=== PATIENT | female | born 1965 | race Caucasian/White ===

== ENCOUNTER 2021-12-16 09:06 | Outpatient (REF) | payer OTHER, SELFPAY ==
--- NOTE | ~2021-12-16 | XR_ITS ---
EXAMINATION: XR LUMBOSACRAL SPINE CLINICAL INFORMATION: Low back pain COMPARISON: None TECHNIQUE: Three views of the lumbosacral spine. FINDINGS: There is grade 1 anterolisthesis of L4 on L5. Mild multilevel degenerative endplate changes throughout the lumbar spine most prominent at L4-L5 and L5-S1. Moderate facet arthrosis at L4-L5 and L5-S1. No compression fracture. Gallstones. XR/XR lumbar spine 2-3V IMPRESSION: Mild to moderate degenerative changes in lumbar spine with grade 1 anterolisthesis of L4 on L5. Gallstones.
[2021-12-16 11:15] LABS: MANUAL DIFF FLAG NO
[2021-12-16 11:24] LABS: Appearance Urine Clear; Color Urine Yellow; Glucose Urine UA Negative (Negative); Leukocyte Esterase Urine Moderate (2+) (Negative); Nitrite Urine Negative (Negative); UMIC TRIGGER UA YES; Urine Blood Negative (Negative); Urine Ketones Negative (Negative); Urine Protein Negative (Neg-Trace)
[2021-12-16 11:27] LABS: Basophils Absolute Auto 0.1 X10*3/uL (0.0-0.2); Eosinophils Absolute Auto 0.1 X10*3/uL (0.0-0.4); Eosinophils Percent Auto 1.2 % (0-4); Hematocrit 40.3 % (37.0-47.0); Hemoglobin 14.1 g/dl (12.0-16.0); Imm Gran Abs Auto 0.01 X10*3/uL (0.00-0.03); Imm Gran Pct Auto 0.2 % (0.0-0.4); Lymphocytes Absolute Auto 2.2 X10*3/uL (1.2-4.9); Mean Corpuscular Hemoglobin 29.3 pg (27.0-33.0); Mean Corpuscular Volume 83.6 fL (80.0-98.0); Mean Platelet Volume 10.8 fL (9.4-12.3); Monocytes Absolute Auto 0.4 X10*3/uL (0.1-1.2); Monocytes Percent Auto 7.1 % (2-11); Neutrophils Percent Auto 52.5 % (45-73); Platelet Count 217 X10*3/uL (160-400); Red Blood Count 4.82 X10*6/uL (4.20-5.50); Red Cell Distribution Width 12.4 % (11.0-16.0); White Blood Count 5.8 X10*3/uL (4.8-10.8)
[2021-12-16 11:43] LABS: Bacteria Urine None Seen (None Seen); Hyaline Casts Urine 0-2 /LPF (0-2); RBC Urine 0-2 /HPF (0-2); Squamous Epithelial Cell Urine 0-2 /HPF (0-2); WBC Urine 0-5 /HPF (0-5)
[2021-12-16 11:50] LABS: Alanine Aminotransferase 25 U/L (0-31); Albumin Level 4.7 g/dL (3.5-5.0); Alkaline Phosphatase 73 U/L (39-117); Anion Gap 17 (12-20); Aspartate Amino Transferase 19 U/L (5-31); Bilirubin Total 0.6 mg/dL (0.0-1.0); Blood Urea Nitrogen 14 mg/dL (9-16); Calcium 9.9 mg/dL (8.4-10.2); Carbon Dioxide 27 mmol/L (22-29); Chloride 100 mmol/L (96-108); Cholesterol 222 mg/dL; Estimated Glomerular Filt Rate > 60; Glucose Fasting 121 mg/dL (60-99); HDL Cholesterol 56 mg/dL; LDL Cholesterol Calculated 135 mg/dl; Sodium 140 mmol/L (135-145); Total Protein 7.2 g/dL (6.5-8.0); Triglycerides 159 mg/dL
[2021-12-16 12:15] LABS: TSH reflex Free T4 0.78 uIU/mL (0.32-4.0); Vitamin D 25-OH Total 53.9 ng/mL (>30)
== END 2021-12-16 09:07 | disposition home or self-care (01) ==
LOC: HO.HMGCLDS 09:06
PROVIDERS: PCP Internal Medicine; Visit Provider Internal Medicine
DX: Z00.00 Encounter for general adult medical examination without abnormal findings (principal); M54.50 Low back pain, unspecified; I10 Essential (primary) hypertension; E55.9 Vitamin D deficiency, unspecified; G89.29 Other chronic pain
CPT/HCPCS: 36415; 72100; 80053; 80061; 81001; 82306; 84443; 85025

== ENCOUNTER 2022-01-12 08:21 | Outpatient (REF) | payer OTHER, SELFPAY ==
--- NOTE | ~2022-01-12 | US_ITS ---
EXAMINATION: US THYROID CLINICAL INFORMATION: Nontoxic goiter, unspecified. COMPARISON: None TECHNIQUE: Linear transducer grayscale and color Doppler examination with attention to the region of the thyroid. FINDINGS: SIZE: Measurements of the thyroid lobes and nodules are given in sagittal, anteroposterior and transverse dimensions respectively. Right Thyroid Lobe: 4.8 x 1.1 x 1.7 cm, volume 4.5 mL. Parenchyma: The gland echotexture is homogeneous. Thyroid vascularity is normal. Left Thyroid Lobe: 4.9 x 1.6 x 1.8 cm, volume 11.3 mL. Parenchyma: The gland echotexture is homogeneous. Thyroid vascularity is normal. Isthmus: 0.5 cm in maximum AP dimension. Estimated total number of nodules greater than or equal to 1 cm: 1. Entry Level Project Coordinator nodules are described as follows: 1. Location: Right mid. Size: 0.41 x 0.7 x 0.39 cm, volume 0.02 mL. Nodule characteristics: Composition: Cystic(0). ACR TI-RADS total points: 0 ACR TI-RADS category: 1 2. Location: Right superior. Size: 0.96 x 0.56 x 0.95 cm, volume 0.27 mL. Nodule characteristics: Composition: Spongiform (0). Echogenicity: Anechoic (0). Shape: Not taller than wide (0). Margins: Smooth (0). Echogenic Foci: None (0). ACR TI-RADS total points: 0 ACR TI-RADS category: 1 3. Location: Left mid. Size: 0.56 x 0.42 x 0.54 cm, volume 0.07 mL. Nodule characteristics: Composition: Spongiform (0). Echogenicity: Anechoic (0). Shape: Not taller than wide (0). Margins: Smooth (0). Echogenic Foci: None (0). ACR TI-RADS total points: 0 ACR TI-RADS category: 1 4. Location: Left inferior. Size: 1.4 x 0.93 x 1.5 cm, volume 1.0 mL. Nodule characteristics: Composition: Solid/almost completely solid (2). Echogenicity: Hypoechoic (2). Shape: Not taller than wide (0). Margins: Smooth (0). Echogenic Foci: Punctate echogenic foci (3). ACR TI-RADS total points: 7 ACR TI-RADS category: 5 NODES: No lymphadenopathy is seen in the tissue surrounding the thyroid gland. US/US thyroid IMPRESSION: Bilateral nodules. According to TI RADS criteria, fine-needle aspiration of the largest nodule in the inferior left lobe recommended. ACR TI-RADS RECOMMENDATION REFERENCE: Ultrasound-guided fine-needle aspiration, followup ultrasound, no further follow up. * TR1 (0 point) and TR 2 (2 points): No FNA or follow up. * TR3 (3 points): FNA if more than or equal to 2.5 cm in maximum dimension, followup ultrasound in 1, 3 and 5 years if 1.5 to 2.4 cm in maximum dimension. * TR4 (4-6 points): FNA if more than or equal to 1.5 cm in maximum dimension, followup ultrasound in 1, 2, 3 and 5 years if 1 to 1.4 cm in maximum dimension. * TR5 (more than or equal to 7 points): FNA if more than or equal to 1 cm in maximum dimension, followup ultrasound every year for 5 years if 0.5 to 0.9 cm in maximum dimension. * TR3, TR4 or TR5 nodules that are below the size threshold for followup receive no follow up.
== END 2022-01-12 08:22 | disposition home or self-care (01) ==
LOC: HO.HMGCX 08:21
PROVIDERS: PCP Internal Medicine; Visit Provider Internal Medicine
DX: E04.9 Nontoxic goiter, unspecified (principal)
CPT/HCPCS: 76536

== ENCOUNTER 2022-04-21 07:45 | Outpatient (REF) | payer OTHER, SELFPAY ==
--- NOTE | 2022-04-21 08:45 | P.BOP_ITS ---
Brief Operative Note Date of Service: 04/21/22 Pre-op diagnosis: Multinodular Thyroid Procedure: EXAMINATION: US THYROID CLINICAL INFORMATION: Multinodular Thyroid COMPARISON: Prior TECHNIQUE: Linear transducer lujan-scale and color Doppler examination with attention to the region of the thyroid. FINDINGS: SIZE: Measurements of the thyroid lobes and nodules are given in sagittal, anteroposterior and transverse dimensions respectively. Right Thyroid Lobe: 1.5 x 3.8 x 1.2 cm, volume mL. Parenchyma: The gland echotexture is homogenous. Thyroid vascularity is normal. Left Thyroid Lobe: 1.5 x 3.9 x 1.1 cm, volume mL. Parenchyma: The gland echotexture is homogenous. Thyroid vascularity is normal. Isthmus: 0.3 cm in maximum AP dimension. RIGHT THYROID LOBE: There is 1 nodule. There is a 0.8 x 1.0 x 0.8 cm spongiform nodule in the RMP. LEFT THYROID LOBE: There is 1 nodule. There is a 1.3 x 0.8 x 1.3 cm spongiform nodule in the LMP. There are mutliple scattered subcentimeter cystic appearing nodules bilaterally. NODES: No lymphadenopathy is seen in the tissue surrounding the thyroid gland. Surgeon: Fariba Velásquez, DO Was an Recorder Helper [employer] used for this Procedure?: No Estimated blood loss (mL): 0
== END 2022-04-21 07:46 | disposition home or self-care (01) ==
LOC: HO.US 07:45
PROVIDERS: PCP Internal Medicine; Visit Provider Internal Medicine
DX: E04.2 Nontoxic multinodular goiter (principal)
CPT/HCPCS: 76536

== ENCOUNTER 2022-05-06 08:25 | Outpatient (REF) | payer OTHER, SELFPAY ==
[2022-05-06 11:36] LABS: Appearance Urine Cloudy; Color Urine Yellow; Glucose Urine UA Negative (Negative); Leukocyte Esterase Urine Moderate (2+) (Negative); Nitrite Urine Negative (Negative); Specific Gravity - Urine 1.025 (1.005-1.025); UMIC TRIGGER UA YES; Urine Blood Negative (Negative); Urine Ketones Negative (Negative); Urine Protein Negative (Neg-Trace)
[2022-05-06 11:39] LABS: Bacteria Urine 4+ (None Seen); Hyaline Casts Urine 0-2 /LPF (0-2); WBC Urine 21-50 /HPF (0-5)
[2022-05-06 12:14] LABS: Anion Gap 15 (12-20); Blood Urea Nitrogen 13 mg/dL (9-16); Calcium 9.4 mg/dL (8.4-10.2); Carbon Dioxide 27 mmol/L (22-29); Chloride 104 mmol/L (96-108); Cholesterol 220 mg/dL; Estimated Glomerular Filt Rate > 60; Glucose Fasting 130 mg/dL (60-99); HDL Cholesterol 58 mg/dL; LDL Cholesterol Calculated 135 mg/dl; Sodium 142 mmol/L (135-145); Triglycerides 137 mg/dL
[2022-05-06 14:13] LABS: Estimated Average Glucose 120 mg/dL; Hemoglobin A1C 149.5293 umol/L; Hemoglobin A1c % 5.8 %
== END 2022-05-06 08:26 | disposition home or self-care (01) ==
LOC: HO.HMGCLDS 08:25
PROVIDERS: PCP Internal Medicine; Visit Provider Internal Medicine
DX: Z00.00 Encounter for general adult medical examination without abnormal findings (principal); I10 Essential (primary) hypertension; E78.5 Hyperlipidemia, unspecified; R73.9 Hyperglycemia, unspecified
CPT/HCPCS: 36415; 80048; 80061; 81001; 83036

== ENCOUNTER 2022-05-13 10:55 | Outpatient (REF) | payer OTHER, SELFPAY ==
--- NOTE | ~2022-05-13 | XR_ITS ---
EXAMINATION: XR CHEST CLINICAL INFORMATION: Cough. COMPARISON: None TECHNIQUE: 2 views of the chest were obtained. FINDINGS: No significant abnormality is noted involving the heart, lungs, mediastinum, bony thorax or soft tissues. XR/XR chest 2V IMPRESSION: No acute cardiopulmonary process.
== END 2022-05-13 10:56 | disposition home or self-care (01) ==
LOC: HO.HMGCX 10:55
PROVIDERS: PCP Internal Medicine; Visit Provider Internal Medicine
DX: R05.9 Cough, unspecified (principal); R82.71 Bacteriuria
CPT/HCPCS: 71046; 87086

== ENCOUNTER 2022-06-06 12:39 | Outpatient (REF) | payer OTHER, SELFPAY ==
[2022-06-06 13:59] LABS: Appearance Urine Clear; Color Urine Yellow; Glucose Urine UA Negative (Negative); Leukocyte Esterase Urine Small (1+) (Negative); Nitrite Urine Negative (Negative); PH 5.5 (5.0-9.0); UMIC TRIGGER UACC YES; Urine Blood Negative (Negative); Urine Ketones Negative (Negative); Urine Protein Negative (Neg-Trace)
[2022-06-06 14:05] LABS: Bacteria Urine 1+ (None Seen); Hyaline Casts Urine 0-2 /LPF (0-2); RBC Urine 0-2 /HPF (0-2); UACC Culture Trigger YES
== END 2022-06-06 12:40 | disposition home or self-care (01) ==
LOC: HO.HMGCLDS 12:39
PROVIDERS: PCP Internal Medicine; Visit Provider Internal Medicine
DX: R82.71 Bacteriuria (principal)
CPT/HCPCS: 81001; 87086

== ENCOUNTER 2022-08-15 08:12 | Outpatient (REF) | payer OTHER, SELFPAY ==
[2022-08-15 11:28] LABS: Appearance Urine Clear; Color Urine Yellow; Glucose Urine UA Negative (Negative); Leukocyte Esterase Urine Small (1+) (Negative); Nitrite Urine Negative (Negative); UMIC TRIGGER UACC YES; Urine Blood Negative (Negative); Urine Ketones Negative (Negative); Urine Protein Negative (Neg-Trace)
[2022-08-15 11:57] LABS: Estimated Average Glucose 120 mg/dL; Hemoglobin A1C 151.4863 umol/L; Hemoglobin A1c % 5.8 %
[2022-08-15 12:10] LABS: Alanine Aminotransferase 24 U/L (0-31); Albumin Level 4.3 g/dL (3.5-5.0); Alkaline Phosphatase 77 U/L (39-117); Anion Gap 12 (12-20); Aspartate Amino Transferase 18 U/L (5-31); Bilirubin Total 0.7 mg/dL (0.0-1.0); Blood Urea Nitrogen 19 mg/dL (9-16); Calcium 9.7 mg/dL (8.4-10.2); Carbon Dioxide 31 mmol/L (22-29); Chloride 103 mmol/L (96-108); Cholesterol 208 mg/dL; Estimated Glomerular Filt Rate > 60; Glucose Fasting 118 mg/dL (60-99); HDL Cholesterol 57 mg/dL; LDL Cholesterol Calculated 114 mg/dl; Potassium 4.1 mmol/L (3.3-5.1); Sodium 142 mmol/L (135-145); Total Protein 6.8 g/dL (6.5-8.0); Triglycerides 187 mg/dL
[2022-08-15 12:55] LABS: Bacteria Urine None Seen (None Seen); Hyaline Casts Urine 0-2 /LPF (0-2); RBC Urine 0-2 /HPF (0-2); Squamous Epithelial Cell Urine 0-2 /HPF (0-2); UACC Culture Trigger YES; WBC Urine 0-5 /HPF (0-5)
== END 2022-08-15 08:13 | disposition home or self-care (01) ==
LOC: HO.HMGCLDS 08:12
PROVIDERS: PCP Internal Medicine; Visit Provider Internal Medicine
DX: E78.5 Hyperlipidemia, unspecified (principal); R73.9 Hyperglycemia, unspecified; I10 Essential (primary) hypertension; R82.90 Unspecified abnormal findings in urine
CPT/HCPCS: 36415; 80053; 80061; 81001; 83036; 87086

== ENCOUNTER 2022-12-20 08:22 | Outpatient (REF) | payer OTHER, SELFPAY ==
[2022-12-20 11:25] LABS: MANUAL DIFF FLAG NO
[2022-12-20 11:39] LABS: Basophils Absolute Auto 0.1 X10*3/uL (0.0-0.2); Basophils Percent Auto 0.9 % (0-2); Eosinophils Absolute Auto 0.1 X10*3/uL (0.0-0.4); Eosinophils Percent Auto 1.5 % (0-4); Hematocrit 43.1 % (37.0-47.0); Hemoglobin 14.2 g/dl (12.0-16.0); Imm Gran Abs Auto 0.01 X10*3/uL (0.00-0.03); Imm Gran Pct Auto 0.2 % (0.0-0.4); Lymphocytes Percent Auto 37.9 % (20-40); Mean Corpuscular HGB Conc 32.9 g/dl (31.0-35.0); Mean Corpuscular Hemoglobin 28.8 pg (27.0-33.0); Mean Corpuscular Volume 87.4 fL (80.0-98.0); Mean Platelet Volume 11.6 fL (9.4-12.3); Monocytes Absolute Auto 0.4 X10*3/uL (0.1-1.2); Monocytes Percent Auto 6.8 % (2-11); Neutrophils Absolute Auto 2.8 x10*3/uL (2.0-8.3); Neutrophils Percent Auto 52.7 % (45-73); Platelet Count 205 X10*3/uL (160-400); Red Blood Count 4.93 X10*6/uL (4.20-5.50); Red Cell Distribution Width 12.6 % (11.0-16.0); White Blood Count 5.3 X10*3/uL (4.8-10.8)
[2022-12-20 11:56] LABS: Alanine Aminotransferase 19 U/L (0-31); Albumin Level 4.4 g/dL (3.5-5.0); Alkaline Phosphatase 78 U/L (39-117); Anion Gap 17 (12-20); Aspartate Amino Transferase 15 U/L (5-31); Bilirubin Total 0.6 mg/dL (0.0-1.0); Blood Urea Nitrogen 15 mg/dL (9-16); Calcium 9.9 mg/dL (8.4-10.2); Carbon Dioxide 25 mmol/L (22-29); Chloride 102 mmol/L (96-108); Cholesterol 216 mg/dL (<200); Estimated Glomerular Filt Rate > 60; Glucose Fasting 118 mg/dL (60-99); HDL Cholesterol 59 mg/dL (>40); LDL Cholesterol Calculated 128 mg/dL (<100); Potassium 3.8 mmol/L (3.3-5.1); Sodium 140 mmol/L (135-145); Total Protein 7.3 g/dL (6.5-8.0); Triglycerides 145 mg/dL (<150)
[2022-12-20 12:12] LABS: Estimated Average Glucose 120 mg/dL; Hemoglobin A1c % 5.8 % (<6.0)
[2022-12-20 13:10] LABS: Creatinine Urine 187.85 mg/dL; Microalbum/Creatinine Ratio Ur 4.7 ug/mg cr (<30)
== END 2022-12-20 08:23 | disposition home or self-care (01) ==
LOC: HO.HMGCLDS 08:22
PROVIDERS: PCP Internal Medicine; Visit Provider Internal Medicine
DX: I10 Essential (primary) hypertension (principal); R73.9 Hyperglycemia, unspecified; E78.5 Hyperlipidemia, unspecified
CPT/HCPCS: 36415; 80053; 80061; 82043; 82570; 83036; 85025

== ENCOUNTER 2022-12-22 07:27 | Outpatient (AMB) | payer OTHER, SELFPAY ==
[2022-12-22 07:40] VITALS: BP 122/74; PULSE 74; O2SAT 97; BMI 36.5
--- NOTE | 2022-12-22 07:40 | MHC.PC.OV ---
Vital Signs 12/22/22 07:40 Height 5 ft 7 in Weight 233 lb BMI 36.5 BP 122/74 Blood Pressure Location Lt brachial Position Sitting Pulse 74 Pulse Source Pulse Oximeter Pulse Oximetry (%) 97 Oxygen Delivery Method Room Air Intake Visit Reasons: Annual PE Intake Note: Pt is here today for PE. Allergies LISA Inhibitors Adverse Reaction (Verified 12/22/22 07:42) Anaphylaxis Seasonal Allergies Adverse Reaction (Verified 12/22/22 07:42) Itchy Eyes shell fish Adverse Reaction (Uncoded 12/22/22 07:42) Anaphylaxis Medication List - Last Reconciled 12/22/22 by Marylu Trejo MD amlodipine 5 mg PO DAILY buspirone 5 mg PO DAILY PRN cetirizine (Zyrtec) 10 mg PO DAILY PRN fluoxetine 20 mg PO DAILY hydrochlorothiazide 25 mg PO DAILY multivitamin 1 tab PO DAILY omeprazole 40 mg PO DAILY potassium citrate mg PO vitamins A,C,S-slhg-pexcsq 4,296 mcg-226 mg-90 mg (PreserVision AREDS) 1 cap PO ONCE Tobacco use date assessed: 12/22/22 Dental Screening Dental Screen Date: 12/22/22 Did you have a dental visit in the last 12 months?: Yes Did you have a dental problem in the last 6 months where you did not have access to dental care?: No Was dental information given to patient?: Patient has dentist HPI Annual PE HPI Details PATIENT PRESENTS FOR PHYSICAL PFSH Medical History Multinodular thyroid Surgical History Hx of vaginal surgery Family History Brother Substance use disorder Mother No problems noted. 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 How often do you have a drink containing alcohol?: Monthly or less 2. How many drinks containing alcohol do you have on a typical day when you are drinking?: 1 or 2 3. How often do you have six or more drinks on one occasion?: Never Total Score: 1 CHICA-7 AMB Questionnaire CHICA-7 Date CHICA - 7 assessed: 05/13/22 Source: Developed by Drs. Kavin Gracia, Ryanne Boyce, Mayco Palacios and colleagues, with an educational claudia from [employer]. Review of Systems Const All systems reviewed & are unremarkable except as noted in HPI and below Reports no additional complaints Eyes Reports no additional complaints ENT Reports no additional complaints Card Reports no additional complaints Resp Reports no additional complaints GI Reports no additional complaints Reports no additional complaints Physical exam (Primary Care) Vital Signs: Last Vital Signs Pulse 74 12/22/22 07:40 BP 122/74 12/22/22 07:40 Pulse Ox 97 12/22/22 07:40 Oxygen Delivery Method Room Air 12/22/22 07:40 BMI result Body Mass Index 36.5 Tobacco/Smoking Status: Tobacco use Status Tobacco use date assessed 12/22/22 12/22/22 07:44 Patient Tobacco Use Status Never used Tobacco 12/22/22 07:44 e-Cigarette/Vaping Use Never Used 12/22/22 07:44 Thrive Assessment: Date of Thrive Assessment Date Thrive assessed 05/13/22 12/22/22 07:44 Const General: no acute distress HENMT Ears: hearing grossly normal bilaterally Throat: Yes posterior oropharynx normal Neck Neck: Yes supple Resp Effort & Inspection: normal respiratory effort Auscultation: clear to auscultation bilaterally Cardio Rhythm: regular rhythm Heart sounds: S1 normal heart sound present and S2 normal heart sound present GI Inspection: Yes normal to inspection Palpation (GI): Soft to palpation Percussion: Yes normal to percussion Auscultation: normal bowel sounds Assessment and Plan Assessment & Plan (1) Foot tendinitis: Code(s): M77.50 - Other enthesopathy of unspecified foot and ankle Plan: Referred to policy analyst (2) Hyperglycemia: Code(s): R73.9 - Hyperglycemia, unspecified Plan: A1c is 5.8 continue ADA diet increase physical activity weight loss discussed with the patient, follow-up in 6 months with a fasting labs before (3) Hyperlipidemia: Comment: Diet controlled Code(s): E78.5 - Hyperlipidemia, unspecified Plan: Continue low-cholesterol diet (4) Hx of colonoscopy: Comment: 1 polyp 05/19, recheck 5 yrs Code(s): Z98.890 - Other specified postprocedural states (5) Annual physical exam: Code(s): Z00.00 - Encounter for general adult medical examination without abnormal findings Plan: Well-balanced diet regular physical activity weight loss discussed with the patient. Patient is up-to-date with mammogram colonoscopy and Pap smear by leaf conditioner helper (6) Multinodular thyroid: Comment: Follow-up by endocrinology Code(s): E04.2 - Nontoxic multinodular goiter Orders: Orders Comprehensive [place]. Panel Fast 6 Months E78.5 - Hyperlipidemia, unspecified, R73.9 - Hyperglycemia, unspecified Complete Blood Count no Diff 6 Months E78.5 - Hyperlipidemia, unspecified, R73.9 - Hyperglycemia, unspecified Hemoglobin A1c 6 Months E78.5 - Hyperlipidemia, unspecified, R73.9 - Hyperglycemia, unspecified Lipid Panel 6 Months E78.5 - Hyperlipidemia, unspecified, R73.9 - Hyperglycemia, unspecified Referrals Podiatry Referral M77.50 - Other enthesopathy of unspecified foot and ankle Coding Level of Care Code Est Pt Prev Care 40-64y(88876) Diagnoses Foot tendinitis M77.50 Hyperglycemia R73.9 Hyperlipidemia E78.5 Hx of colonoscopy Z98.890 Annual physical exam Z00.00 Multinodular thyroid E04.2
== END 2022-12-22 09:03 | disposition home or self-care (01) ==
PROVIDERS: PCP Internal Medicine; Visit Provider Internal Medicine
DX: M77.50 Other enthesopathy of unspecified foot and ankle (principal); R73.9 Hyperglycemia, unspecified; E78.5 Hyperlipidemia, unspecified; Z98.890 Other specified postprocedural states; Z00.00 Encounter for general adult medical examination without abnormal findings; E04.2 Nontoxic multinodular goiter
CPT/HCPCS: 99396

== ENCOUNTER 2022-12-29 07:55 | Outpatient (RCR) | payer OTHER, SELFPAY ==
--- NOTE | 2022-12-29 08:55 | MHC.PT.EP ---
[facility] [place] Office [place] Office [place] Office [address] [phone] F: [phone] F: [phone] F: [phone] F: [phone] Physical Therapy Plan of Care Date of Evaluation: 12/29/22 Date of Surgery: none Diagnosis: low back pain Assessment: Patient is a 57 year old R handed female who presents with s/s consistent with low back pain. 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 Patient past medical history is unremarkable. Current impairments include pain, posture, ROM, strength, activity tolerance and functional mobility. Functional limitations include decreased ability to walk, bend, lift, sleep, dressing, and transfers. Patient is motivated with good rehab potential. Skilled PT will address impairments and functional limitations in order to achieve goals. Frequency and Duration: The patient will be seen 1x/week for 5 weeks Short Term Goals: I with HEP -2 weeks Pain free with all ADLs and work - 3 weeks Operational Risk Analyst Goals: Hip strenght 4+/5 grossly - 5 weeks 90/90 lacking 18 or better - 5 weeks demo proper transfer and lifting body mechanics - 5 weeks Treatment Plan: Modalities to reduce pain, spasms and effusion. Manual therapy to restore motion and function. Therapeutic exercise to improve strength and flexibility. Neuromuscular re-education for posture and balance. Therapeutic activities to return to functional activities of daily living. Electronically signed by: Julio Vo, PT Please sign and return to therapist. Thank you for your referral.
--- NOTE | 2023-04-11 13:29 | MHC.PT.DC ---
[facility] [place] Office [place] Office [place] Office [address]von Mai [address] [phone] F: [phone] F: [phone] F: [phone] F: [phone] Physical Therapy Discharge Report Diagnosis: low back pain Date of Surgery: none Date of Evaluation: 12/29/22 Date of Discharge: 01/11/23 Treatments to Date: 1 Cancellations to Date: No Shows to Date: Discharge Status: Patient Elected to Stop Discharge Summary: Pt did not return after evaluation. Patient is a 57 year old R handed female who presents with s/s consistent with low back pain. 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 Patient past medical history is unremarkable. Current impairments include pain, posture, ROM, strength, activity tolerance and functional mobility. Functional limitations include decreased ability to walk, bend, lift, sleep, dressing, and transfers. Patient is motivated with good rehab potential. Skilled PT will address impairments and functional limitations in order to achieve goals. Electronically signed by: Julio Vo, PT Please sign and return to therapist. Thank you for your referral.
== END 2023-04-11 13:29 | disposition home or self-care (01) ==
LOC: HO.PTCHIC 07:55
PROVIDERS: PCP Internal Medicine; Visit Provider Internal Medicine
DX: M54.50 Low back pain, unspecified (principal)
CPT/HCPCS: 97110; 97161

== ENCOUNTER 2023-03-23 08:29 | Outpatient (REF) | payer OTHER, SELFPAY ==
--- NOTE | ~2023-03-23 | US_ITS ---
EXAMINATION: US THYROID CLINICAL INFORMATION: Nontoxic multinodular goiter. COMPARISON: Ultrasound soft tissue head/neck thyroid dated 01/12/2022. TECHNIQUE: Linear transducer grayscale and color Doppler examination with attention to the region of the thyroid. FINDINGS: SIZE: Measurements of the thyroid lobes and nodules are given in sagittal, anteroposterior and transverse dimensions respectively. Right Thyroid Lobe: 5.0 x 1.3 x 1.7 cm, volume 5.6 mL. Previously 4.8 x 1.1 x 1.7 cm, volume 4.5 mL. Parenchyma: The gland echotexture is homogeneous. Thyroid vascularity is normal. Left Thyroid Lobe: 4.8 x 1.3 x 1.5 cm, volume 5.1 mL. Previously 4.9 x 1.6 x 1.8 cm, volume 7.3 mL. Parenchyma: The gland echotexture is homogeneous. Thyroid vascularity is normal. Isthmus: 0.49 cm in maximum AP dimension. Previously 0.50 cm. Estimated total number of nodules greater than or equal to 1 cm: 2. Skating Carhop nodules are described as follows: 1. Location: Right superior. Size: 1.1 x 0.61 x 1.0 cm, volume 0.33 mL. Previously: 0.96 x 0.56 x 0.95 cm, volume 0.27 mL. Nodule characteristics: Composition: Spongiform (0). Echogenicity: Anechoic (0). Shape: Not taller than wide (0). Margins: Smooth (0). Echogenic Foci: None (0). ACR TI-RADS total points: 0 Previous: 0 ACR TI-RADS category: 1 Previous: 1 Significant change in size (>/= 20% in 2 dimensions and minimal increase of 2 mm or 50% or greater increase in volume): No Change in features: No Change in ACR TI-RADS risk category: No 2. Location: Right [id number]-drzjc. Size: 0.65 x 0.34 x 0.70 cm, volume 0.08 mL. Previously: 0.41 x 0.27 x 0.39 cm, volume 0.02 mL. Nodule characteristics: Composition: Spongiform (0). Echogenicity: Anechoic (0). Shape: Not taller than wide (0). Margins: Smooth (0). Echogenic Foci: None (0). ACR TI-RADS total points: 0 Previous: 0 ACR TI-RADS category: 1 Previous: 1 Significant change in size (>/= 20% in 2 dimensions and minimal increase of 2 mm or 50% or greater increase in volume): No Change in features: No Change in ACR TI-RADS risk category: No 3. Location: Left superior. Size: 0.65 x 0.33 x 0.59 cm, volume 0.07 mL. Previously: 0.56 x 0.42 x 0.54 cm, volume 0.07 mL. Nodule characteristics: Composition: Spongiform (0). Echogenicity: Anechoic (0). Shape: Not taller than wide (0). Margins: Smooth (0). Echogenic Foci: None (0). ACR TI-RADS total points: 0 Previous: 0 ACR TI-RADS category: 1 Previous: 1 Significant change in size (>/= 20% in 2 dimensions and minimal increase of 2 mm or 50% or greater increase in volume): No Change in features: No Change in ACR TI-RADS risk category: No 4. Location: Left mid/inferior. Size: 1.5 x 0.87 x 1.3 cm, volume 0.90 mL. Previously: 1.4 x 0.93 x 1.5 cm, volume 1.0 mL. Nodule characteristics: Composition: Solid almost completely solid. Echogenicity: Hypoechoic (2). Shape: Not taller than wide (0). Margins: Smooth (0). Echogenic Foci: Punctate echogenic foci (3). ACR TI-RADS total points: 7 Previous: 7 ACR TI-RADS category: 5 Previous: 5 Significant change in size (>/= 20% in 2 dimensions and minimal increase of 2 mm or 50% or greater increase in volume): No Change in features: No Change in ACR TI-RADS risk category: No NODES: No lymphadenopathy is seen in the tissue surrounding the thyroid gland. US/US thyroid IMPRESSION: Left 1.5 cm TR 5 thyroid nodule. Fine-needle aspiration recommended if more than or equal to 1 cm in maximum dimension. ACR TI-RADS RECOMMENDATION REFERENCE: Ultrasound-guided fine-needle aspiration, follow up ultrasound, no further followup. * TR1 (0 point) and TR2 (2 points): No FNA or followup * TR3 (3 points): FNA if more than or equal to 2.5 cm in maximum dimension, follow up ultrasound in 1, 3 and 5 years if 1.5 to 2.4 cm in maximum dimension. * TR4 (4-6 points): FNA if more than or equal to 1.5 cm in maximum dimension, follow up ultrasound in 1, 2, 3 and 5 years if 1 to 1.4 cm in maximum dimension. * TR5 (more than or equal to 7 points): FNA if more than or equal to 1 cm in maximum dimension, follow up ultrasound every year for 5 years if 0.5 to 0.9 cm in maximum dimension. * TR3, TR4 or TR5 nodules that are below the size threshold for follow up receive no followup.
== END 2023-03-23 08:30 | disposition home or self-care (01) ==
LOC: HO.HMGCX 08:29
PROVIDERS: PCP Internal Medicine; Visit Provider Internal Medicine Endocrinology, Diabetes & Metabolism
DX: E04.2 Nontoxic multinodular goiter (principal)
CPT/HCPCS: 76536

== ENCOUNTER 2023-04-27 08:13 | Outpatient (REF) | payer OTHER, SELFPAY ==
[2023-04-27 12:10] LABS: Free T4 (Free Thyroxine) 0.83 ng/dL (0.71-1.85); Thyroid Stimulating Hormone 1.31 uIU/mL (0.32-4.0)
== END 2023-04-27 08:14 | disposition home or self-care (01) ==
LOC: HO.HMGCLDS 08:13
PROVIDERS: PCP Internal Medicine; Visit Provider Internal Medicine Endocrinology, Diabetes & Metabolism
DX: E04.1 Nontoxic single thyroid nodule (principal)
CPT/HCPCS: 36415; 84439; 84443

== ENCOUNTER 2023-05-03 13:43 | Outpatient (AMB) | payer OTHER, SELFPAY ==
--- NOTE | 2023-05-03 13:46 | MHC.OFFVIS ---
Intake Vital Signs 05/03/23 13:47 Height 5 ft 7 in Weight 236 lb 12.423 oz BMI 37.1 BP 110/82 Blood Pressure Location Lt brachial Position Sitting Pulse 92 Pulse Source Pulse Oximeter Intake Visit Reasons: NTMNG-lvm Intake Note: Patient present today for NTMNG follow up visit. Last seen by Dr. Jackson on 02/02/2022. Search Engine Optimizer Required: No Accompanied by: Self / Same As Patient Allergies LISA Inhibitors Adverse Reaction (Verified 05/03/23 13:55) Anaphylaxis Seasonal Allergies Adverse Reaction (Verified 05/03/23 13:55) Itchy Eyes shell fish Adverse Reaction (Uncoded 12/22/22 07:42) Anaphylaxis Medication List - Last Reconciled 05/03/23 by Kavin Matthew MD amlodipine 5 mg PO DAILY buspirone 5 mg PO DAILY PRN cetirizine (Zyrtec) 10 mg PO DAILY PRN fluoxetine 20 mg PO DAILY hydrochlorothiazide 25 mg PO DAILY multivitamin 1 tab PO DAILY omeprazole 40 mg PO DAILY potassium citrate mg PO vitamins A,C,X-wkvy-yosexd 4,296 mcg-226 mg-90 mg (PreserVision AREDS) 1 cap PO ONCE HPI HPI Comments History of Present Illness Details 57 YO F with PMHx Multinodular Thyroid who is seen in consultation for multinodular thyroid at the request of PCP. The patient last saw Dr. Jackson on 02/02/2022 Was initially diagnosed with multinodular thyroid in 2021 with thyroid US revealing multiple bilateral thyroid nodules. Currently denies any dysphagia or hoarseness of voice. Does mention a sensation of swelling in the neck. Denies any tenderness in the neck. Denies any symptoms of hyper or hypothyroidism. Denies any history of head or neck irradiation. Denies any family history of thyroid cancer. Thyroid US: 01/12/2022 Right Thyroid Lobe: 4.8 x 1.1 x 1.7 cm, volume 4.5 mL. Parenchyma: The gland echotexture is homogeneous. Thyroid vascularity is normal. Left Thyroid Lobe: 4.9 x 1.6 x 1.8 cm, volume 11.3 mL. Parenchyma: The gland echotexture is homogeneous. Thyroid vascularity is normal. Isthmus: 0.5 cm in maximum AP dimension. Estimated total number of nodules greater than or equal to 1 cm: 1. Record Clerk nodules are described as follows: 1. Location: Right mid. ?? ? Size: 0.41 x 0.7 x 0.39 cm, volume 0.02 mL. ?? ? Nodule characteristics: ?? ? Composition: Cystic(0). ?? ? ACR TI-RADS total points: 0 ?? ? ACR TI-RADS category: 1 2. Location: Right superior. ?? ? Size: 0.96 x 0.56 x 0.95 cm, volume 0.27 mL. ?? ? Nodule characteristics: ?? ? Composition: Spongiform (0). ?? ? Echogenicity: Anechoic (0). ?? ? Shape: Not taller than wide (0). ?? ? Margins: Smooth (0). ?? ? Echogenic Foci: None (0). ?? ? ACR TI-RADS total points: 0 ?? ? ACR TI-RADS category: 1 3. Location: Left mid. ?? ? Size: 0.56 x 0.42 x 0.54 cm, volume 0.07 mL. ?? ? Nodule characteristics: ?? ? Composition: Spongiform (0). ?? ? Echogenicity: Anechoic (0). ?? ? Shape: Not taller than wide (0). ?? ? Margins: Smooth (0). ?? ? Echogenic Foci: None (0). ?? ? ACR TI-RADS total points: 0 ?? ? ACR TI-RADS category: 1 4. Location: Left inferior. ?? ? Size: 1.4 x 0.93 x 1.5 cm, volume 1.0 mL. ?? ? Nodule characteristics: ?? ? Composition: Solid/almost completely solid (2). ?? ? Echogenicity: Hypoechoic (2). ?? ? Shape: Not taller than wide (0). ?? ? Margins: Smooth (0). ?? ? Echogenic Foci: Punctate echogenic foci (3). ?? ? ACR TI-RADS total points: 7 ?? ? ACR TI-RADS category: 5 NODES: No lymphadenopathy is seen in the tissue surrounding the thyroid gland. Labs: Laboratory Tests . Location: Left mid/inferior. Size: 1.5 x 0.87 x 1.3 cm, volume 0.90 mL. Previously: 1.4 x 0.93 x 1.5 cm, volume 1.0 mL. Nodule characteristics: Composition: Solid almost completely solid. Echogenicity: Hypoechoic (2). Shape: Not taller than wide (0). Margins: Smooth (0). Echogenic Foci: Punctate echogenic foci (3). ACR TI-RADS total points: 7 Previous: 7 ACR TI-RADS category: 5 Previous: 5 12/16/21 09:24 TSH 0.78 No obstructive sx PFSH Medical History Multinodular thyroid Surgical History Hx of vaginal surgery Family History Brother Substance use disorder Mother No problems noted. 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 There are no palpable thyroid nodules Assessment & Plan Assessment & Plan (1) Multinodular thyroid: Comment: Follow-up by endocrinology Code(s): E04.2 - Nontoxic multinodular goiter Plan: This is a 57-year-old white female with a history of multinodular goiter with a dominant left midpole nodule characterized by Dr. Jackson on ultrasound spongiform but characterized as suspicious by Radiology. She appears to be clinically and biochemically euthyroid Plan is to discuss options of treatment with the patient including observation versus aspiration of the left midpole nodule. We discussed either going to Interventional Radiology here for possible FNA or getting a 2nd opinion to evaluate whether nodule needs to be biopsied. Patient is aware of the options and will get back to me regarding where she wants to be referred. I explained that any given nodule has a 5% chance of being cancer and may need further evaluation Coding Level of Care Code Est Pt Level 3 (13357) Diagnoses Multinodular thyroid E04.2
[2023-05-03 13:47] VITALS: BP 110/82; PULSE 92; BMI 37.1
== END 2023-05-03 14:30 | disposition home or self-care (01) ==
PROVIDERS: PCP Internal Medicine; Visit Provider Internal Medicine Endocrinology, Diabetes & Metabolism
DX: E04.2 Nontoxic multinodular goiter (principal)
CPT/HCPCS: 99213

== ENCOUNTER → 2023-05-03 13:43 | Outpatient (BNVA) | payer OTHER, SELFPAY | PROVIDERS: Visit Provider Internal Medicine Endocrinology, Diabetes & Metabolism ==

== ENCOUNTER 2023-06-22 07:34 | Outpatient (AMB) | payer OTHER, SELFPAY ==
--- NOTE | 2023-06-22 07:49 | MHC.PC.OV ---
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 Required: No Is last menstrual period known: No Post menopausal: Yes Patient : No Allergies LISA Inhibitors Adverse Reaction (Verified 06/22/23 07:51) Anaphylaxis Seasonal Allergies Adverse Reaction (Verified 06/22/23 07:51) Itchy Eyes shell fish Adverse Reaction (Uncoded 06/22/23 07:51) Anaphylaxis Medication List - Last Reconciled 06/22/23 by Kandice Boston RN amlodipine 5 mg PO DAILY ascorbate calcium (vitamin C) 500 mg PO DAILY buspirone 5 mg PO DAILY PRN cetirizine (Zyrtec) 10 mg PO DAILY PRN cholecalciferol (vitamin D3) 25 mcg PO DAILY fluoxetine 20 mg PO DAILY hydrochlorothiazide 25 mg PO DAILY multivitamin 1 tab PO DAILY omeprazole 40 mg PO DAILY potassium citrate mg PO vitamins A,C,W-iqhw-eqsnrx 4,296 mcg-226 mg-90 mg (PreserVision AREDS) 1 cap PO ONCE Tobacco use date assessed: 06/22/23 Dental Screening Dental Screen Date: 06/22/23 Did you have a dental visit in the last 12 months?: Yes Did you have a dental problem in the last 6 months where you did not have access to dental care?: No Was dental information given to patient?: Patient has dentist HPI 6 month follow up HPI Details Patient presents for the follow-up on hypertension chronic GERD and anxiety, stable on current medications. [facility] Medical History Multinodular thyroid Surgical History Hx of vaginal surgery Family History Brother Substance use disorder Mother No problems noted. 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 1. Little interest or pleasure in doing things: not at all 2. Feeling down, depressed, or hopeless: not at all 3. Trouble falling or staying asleep, or sleeping too much: not at all 4. Feeling tired or having little energy: not at all 5. Poor appetite or overeating: not at all 6. Feeling bad about yourself - or that you are a failure or have let yourself or your family down: not at all 7. Trouble concentrating on things, such as reading the newspaper or watching television: not at all 8. Moving or speaking so slowly that other people could have noticed. Or the opposite - being so fidgety or restless that you have been moving around a lot more than usual: not at all 9. Thoughts that you would be better off or of hurting yourself in some way: not at all Total score: 0 Depression Screening Interpretation: Negative Depression Screening Done: Yes 79139 - PHQ-9 Billing: Yes Source: Developed by Drs. Kavin Gracia, Ryanne Boyce, Mayco Palacios and colleagues, with an educational claudia from [employer]. Thrive Questionnaire Date Thrive assessed: 06/22/23 I am a: Patient What is your living situation today?: I have a steady place to live Within the past 12 months, did the food you bought not last and you didn't have the money to get more?: Never true Within the past 12 months, did you worry whether your food would run out before you got money to buy more?: Never true Do you have trouble paying for medicines?: No Do you have trouble getting transportation to medical appointments?: No Do you have trouble paying your heating and electricity bill?: No Do you have trouble taking care of your child, family member or friend?: No Do you have trouble with day-to-day activities such as bathing, preparing meals, shopping, managing finances, etc.?: No Are you currently unemployed and looking for a job?: No Are you interested in more education?: No Please select the resources that you would like help with: None Currently or been in a relationship where the following occur: no concerns reported THRIVE Score: 0 AUDIT C Alcohol Use Questionnaire (AUDIT-C) 1. How often do you have a drink containing alcohol?: 2-3 times a week 2. How many drinks containing alcohol do you have on a typical day when you are drinking?: 1 or 2 3. How often do you have six or more drinks on one occasion?: Never Total Score: 3 CHICA-7 AMB Questionnaire CHICA-7 Date CHICA - 7 assessed: 06/22/23 Feeling nervous, anxious, or on edge: 0 = Not at all Not being able to stop or control worryin = Not at all Worrying too much about different things: 0 = Not at all Trouble relaxin = Not at all Being so restless that it is hard to sit still: 0 = Not at all Becoming easily annoyed or irritable: 0 = Not at all Feeling afraid as if something awful might happen: 0 = Not at all Total CHICA-7 score (0-4 normal; 5-9 mild; 10-14 moderate; 15-21 severe): 0 Source: Developed by Drs. Kavin Gracia, Ryanne Boyce, Mayco Palacios and colleagues, with an educational claudia from [employer]. CHICA-7 Assessment Billing CHICA-7 Assessment Tool: CHICA-7 Assessment 04992 Review of Systems Const All systems reviewed & are unremarkable except as noted in HPI and below Reports no additional complaints Eyes Reports no additional complaints ENT Reports no additional complaints Card Reports no additional complaints Resp Reports no additional complaints GI Reports no additional complaints Reports no additional complaints Physical exam (Primary Care) Vital Signs: Last Vital Signs Pulse 78 06/22/23 07:53 Resp 20 06/22/23 07:53 BP 138/88 06/22/23 07:53 Pulse Ox 98 06/22/23 07:53 Oxygen Delivery Method Room Air 06/22/23 07:53 Tobacco/Smoking Status: Tobacco use Status Tobacco use date assessed 06/22/23 06/22/23 07:57 Patient Tobacco Use Status Never used Tobacco 06/22/23 07:49 e-Cigarette/Vaping Use Never Used 06/22/23 07:49 PHQ-9: PHQ-9 Score PHQ-9: Total score 0 06/22/23 08:20 Depression Screening Interpretation: Negative Thrive Assessment: Date of Thrive Assessment Date Thrive assessed 06/22/23 06/22/23 08:01 Currently or been in a relationship where the following occur: no concerns reported Const General: no acute distress HENMT Head: Yes normal to inspection Face and sinus: Yes normal facial exam Eyes General: appearance normal, both eyes and all related structures Resp Effort & Inspection: normal respiratory effort Auscultation: clear to auscultation bilaterally Cardio Rhythm: regular rhythm Heart sounds: S1 normal heart sound present and S2 normal heart sound present GI Inspection: Yes normal to inspection Palpation (GI): Soft to palpation Percussion: Yes normal to percussion Auscultation: normal bowel sounds Assessment and Plan Assessment & Plan (1) Hyperlipidemia: Comment: Diet controlled Code(s): E78.5 - Hyperlipidemia, unspecified Plan: Continue low-cholesterol diet (2) Hyperglycemia: Code(s): R73.9 - Hyperglycemia, unspecified Plan: A1c was 6.0, Continue ADA diet regular exercise weight loss, follow-up in 6 months with a fasting labs before (3) HTN (hypertension): Code(s): I10 - Essential (primary) hypertension Plan: Continue current medications (4) Anxiety: Code(s): F41.9 - Anxiety disorder, unspecified Plan: Continue current medications Orders: Orders Comprehensive [place]. Panel Fast 6 Months E78.5 - Hyperlipidemia, unspecified, R73.9 - Hyperglycemia, unspecified Hemoglobin A1c 6 Months E78.5 - Hyperlipidemia, unspecified, R73.9 - Hyperglycemia, unspecified Complete Blood Count Auto Diff 6 Months E78.5 - Hyperlipidemia, unspecified, R73.9 - Hyperglycemia, unspecified Lipid Panel 6 Months E78.5 - Hyperlipidemia, unspecified, R73.9 - Hyperglycemia, unspecified Microalbumin, Random (w Creat) 6 Months E78.5 - Hyperlipidemia, unspecified, R73.9 - Hyperglycemia, unspecified Coding Level of Care Code Est Pt Level 4 (81277) Diagnoses Hyperlipidemia E78.5 Hyperglycemia R73.9 HTN (hypertension) I10 Anxiety F41.9 Additional Codes CHICA-7 Assessment Billing - CHICA-7 Assessment Tool: CHICA-7 Assessment 20366 ([id number])
[2023-06-22 07:53] VITALS: BP 120/78; PULSE 78; RESP 20; O2SAT 98
== END 2023-06-22 15:29 | disposition home or self-care (01) ==
PROVIDERS: PCP Internal Medicine; Visit Provider Internal Medicine
DX: E78.5 Hyperlipidemia, unspecified (principal); R73.9 Hyperglycemia, unspecified; I10 Essential (primary) hypertension; F41.9 Anxiety disorder, unspecified
CPT/HCPCS: 99214

== ENCOUNTER 2023-06-22 08:19 | Outpatient (REF) | payer OTHER, SELFPAY ==
[2023-06-22 10:31] LABS: Mean Corpuscular HGB Conc 33.3 g/dl (31.0-35.0); Mean Corpuscular Hemoglobin 28.3 pg (27.0-33.0); Mean Platelet Volume 11.2 fL (9.4-12.3); Platelet Count 200 X10*3/uL (160-400); Red Blood Count 4.94 X10*6/uL (4.20-5.50); Red Cell Distribution Width 12.7 % (11.0-16.0); White Blood Count 5.2 X10*3/uL (4.8-10.8)
[2023-06-22 11:15] LABS: Anion Gap 14 (12-20); Blood Urea Nitrogen 15 mg/dL (9-16); Carbon Dioxide 30 mmol/L (22-29); Chloride 102 mmol/L (96-108); Estimated Glomerular Filt Rate > 60; Glucose Fasting 122 mg/dL (60-99); Sodium 142 mmol/L (135-145)
[2023-06-22 11:16] LABS: Alanine Aminotransferase 24 U/L (0-31); Albumin Level 4.4 g/dL (3.5-5.0); Alkaline Phosphatase 83 U/L (39-117); Aspartate Amino Transferase 19 U/L (5-31); Bilirubin Total 0.6 mg/dL (0.0-1.0); Cholesterol 218 mg/dL (<200); HDL Cholesterol 61 mg/dL (>40); LDL Cholesterol Calculated 134 mg/dL (<100); Total Protein 7.3 g/dL (6.5-8.0); Triglycerides 116 mg/dL (<150)
[2023-06-22 11:30] LABS: Estimated Average Glucose 126 mg/dL; Hemoglobin A1C 151.2664 umol/L
== END 2023-06-22 08:20 | disposition home or self-care (01) ==
LOC: HO.HMGCLDS 08:19
PROVIDERS: PCP Internal Medicine; Visit Provider Internal Medicine
DX: R73.9 Hyperglycemia, unspecified (principal); E78.5 Hyperlipidemia, unspecified
CPT/HCPCS: 36415; 80053; 80061; 83036; 85027

== ENCOUNTER 2023-12-25 09:56 | Outpatient (REF) | payer OTHER, SELFPAY ==
[2023-12-25 13:20] LABS: MANUAL DIFF FLAG NO
[2023-12-25 13:26] LABS: Basophils Absolute Auto 0.1 X10*3/uL (0.0-0.2); Basophils Percent Auto 0.9 % (0-2); Eosinophils Absolute Auto 0.1 X10*3/uL (0.0-0.4); Eosinophils Percent Auto 1.9 % (0-4); Hematocrit 43.6 % (37.0-47.0); Hemoglobin 14.2 g/dl (12.0-16.0); Imm Gran Abs Auto 0.01 X10*3/uL (0.00-0.03); Imm Gran Pct Auto 0.2 % (0.0-0.4); Lymphocytes Absolute Auto 1.6 X10*3/uL (1.2-4.9); Lymphocytes Percent Auto 27.7 % (20-40); Mean Corpuscular HGB Conc 32.6 g/dl (31.0-35.0); Mean Corpuscular Hemoglobin 28.3 pg (27.0-33.0); Mean Platelet Volume 11.6 fL (9.4-12.3); Monocytes Absolute Auto 0.5 X10*3/uL (0.1-1.2); Neutrophils Absolute Auto 3.6 x10*3/uL (2.0-8.3); Neutrophils Percent Auto 61.3 % (45-73); Platelet Count 184 X10*3/uL (160-400); Red Blood Count 5.01 X10*6/uL (4.20-5.50); Red Cell Distribution Width 12.4 % (11.0-16.0); White Blood Count 5.9 X10*3/uL (4.8-10.8)
[2023-12-25 13:38] LABS: Estimated Average Glucose 120 mg/dL; Hemoglobin A1c % 5.8 % (<6.0)
[2023-12-25 13:56] LABS: Alanine Aminotransferase 18 U/L (0-31); Albumin Level 4.4 g/dL (3.5-5.0); Alkaline Phosphatase 80 U/L (39-117); Anion Gap 13 (12-20); Aspartate Amino Transferase 15 U/L (5-31); Bilirubin Total 0.7 mg/dL (0.0-1.0); Blood Urea Nitrogen 19 mg/dL (9-16); Calcium 9.9 mg/dL (8.4-10.2); Carbon Dioxide 28 mmol/L (22-29); Chloride 102 mmol/L (96-108); Cholesterol 202 mg/dL (<200); Estimated Glomerular Filt Rate > 60; Glucose Fasting 121 mg/dL (60-99); HDL Cholesterol 58 mg/dL (>40); LDL Cholesterol Calculated 114 mg/dL (<100); Potassium 4.1 mmol/L (3.3-5.1); Sodium 139 mmol/L (135-145); Total Protein 7.4 g/dL (6.5-8.0); Triglycerides 151 mg/dL (<150)
[2023-12-25 14:05] LABS: Creatinine Urine 121.77 mg/dL; Microalbum/Creatinine Ratio Ur 4.9 ug/mg cr (<30)
== END 2023-12-25 09:57 | disposition home or self-care (01) ==
LOC: HO.HMGCLDS 09:56
PROVIDERS: PCP Internal Medicine; Visit Provider Internal Medicine
DX: E78.5 Hyperlipidemia, unspecified (principal); R73.9 Hyperglycemia, unspecified
CPT/HCPCS: 36415; 80053; 80061; 82043; 82570; 83036; 85025; 96127

== ENCOUNTER 2023-12-25 10:19 | Outpatient (AMB) | payer OTHER, SELFPAY ==
[2023-12-25 10:33] VITALS: BP 114/72; PULSE 86; O2SAT 98; BMI 36.0
--- NOTE | 2023-12-25 10:33 | A.OFFPC_ITS ---
Vital Signs 12/25/23 10:33 Height 5 ft 7 in Weight 230 lb BMI 36.0 BP 114/72 Blood Pressure Location Rt brachial Position Sitting Pulse 86 Pulse Source Pulse Oximeter Pulse Oximetry (%) 98 Oxygen Delivery Method Room Air Intake Visit Reasons: PE Intake Note: Pt is here today for PE. 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 Allergies LISA Inhibitors Adverse Reaction (Verified 12/25/23 10:55) Anaphylaxis Seasonal Allergies Adverse Reaction (Verified 12/25/23 10:55) Itchy Eyes shell fish Adverse Reaction (Uncoded 12/25/23 10:55) Anaphylaxis Medication List - Last Reconciled 12/25/23 by Marylu Trejo MD amlodipine 5 mg PO DAILY ascorbate calcium (vitamin C) 500 mg PO DAILY cetirizine (Zyrtec) 10 mg PO DAILY PRN cholecalciferol (vitamin D3) 25 mcg PO DAILY fluoxetine 20 mg PO DAILY hydrochlorothiazide 25 mg PO DAILY multivitamin 1 tab PO DAILY omeprazole 40 mg PO DAILY potassium citrate mg PO vitamins A,C,W-suna-epmwuh 4,296 mcg-226 mg-90 mg (PreserVision AREDS) 1 cap PO ONCE Tobacco use date assessed: 12/25/23 Dental Screening Dental Screen Date: 12/25/23 Did you have a dental visit in the last 12 months?: Yes Did you have a dental problem in the last 6 months where you did not have access to dental care?: No Was dental information given to patient?: Patient has dentist HPI PE HPI Details Patient presents for physical. She retired and has been physically active. Anxiety has improved significantly and patient stopped taking buspirone. [facility] Medical History Multinodular thyroid Surgical History Hx of vaginal surgery Family History Brother Substance use disorder Mother No problems noted. 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 1. Little interest or pleasure in doing things: not at all 2. Feeling down, depressed, or hopeless: not at all 3. Trouble falling or staying asleep, or sleeping too much: not at all 4. Feeling tired or having little energy: not at all 5. Poor appetite or overeating: not at all 6. Feeling bad about yourself - or that you are a failure or have let yourself or your family down: not at all 7. Trouble concentrating on things, such as reading the newspaper or watching television: not at all 8. Moving or speaking so slowly that other people could have noticed. Or the opposite - being so fidgety or restless that you have been moving around a lot more than usual: not at all 9. Thoughts that you would be better off or of hurting yourself in some way: not at all Total score: 0 Depression Screening Interpretation: Negative Depression Screening Done: Yes 58879 - PHQ-9 Billing: Yes Source: Developed by Drs. Kavin Gracia, Ryanne Boyce, Mayco Palacios and colleagues, with an educational claudia from [employer]. Thrive Questionnaire Date Thrive assessed: 12/25/23 I am a: Patient What is your living situation today?: I have a steady place to live Within the past 12 months, did the food you bought not last and you didn't have the money to get more?: Never true Within the past 12 months, did you worry whether your food would run out before you got money to buy more?: Never true Do you have trouble paying for medicines?: No Do you have trouble getting transportation to medical appointments?: No Do you have trouble paying your heating and electricity bill?: No Do you have trouble taking care of your child, family member or friend?: No Do you have trouble with day-to-day activities such as bathing, preparing meals, shopping, managing finances, etc.?: No Are you interested in more education?: No Please select the resources that you would like help with: None Currently or been in a relationship where the following occur: No concerns reported THRIVE Score: 0 AUDIT C Alcohol Use Questionnaire (AUDIT-C) 2. How many drinks containing alcohol do you have on a typical day when you are drinking?: 1 or 2 Total Score: 0 CHICA-7 AMB Questionnaire CHICA-7 Date CHICA - 7 assessed: 12/25/23 Feeling nervous, anxious, or on edge: 0 = Not at all Not being able to stop or control worryin = Not at all Worrying too much about different things: 0 = Not at all Trouble relaxin = Not at all Being so restless that it is hard to sit still: 0 = Not at all Becoming easily annoyed or irritable: 0 = Not at all Feeling afraid as if something awful might happen: 0 = Not at all Total CHICA-7 score (0-4 normal; 5-9 mild; 10-14 moderate; 15-21 severe): 0 Source: Developed by Drs. Kavin Gracia, Ryanne Boyce, Mayco Palacios and colleagues, with an educational claudia from [employer]. CHICA-7 Assessment Billing CHICA-7 Assessment Tool: CHICA-7 Assessment 00846 Review of Systems Const All systems reviewed & are unremarkable except as noted in HPI and below Eyes Reports no additional complaints ENT Reports no additional complaints Card Reports no additional complaints Resp Reports no additional complaints GI Reports no additional complaints Reports no additional complaints Physical exam (Primary Care) Vital Signs: Last Vital Signs Pulse 86 12/25/23 10:33 BP 114/72 12/25/23 10:33 Pulse Ox 98 12/25/23 10:33 Oxygen Delivery Method Room Air 12/25/23 10:33 BMI result Body Mass Index 36.0 Tobacco/Smoking Status: Tobacco use Status Tobacco use date assessed 12/25/23 12/25/23 10:57 Patient Tobacco Use Status Never used Tobacco 12/25/23 10:57 e-Cigarette/Vaping Use Never Used 12/25/23 10:33 PHQ-9: PHQ-9 Score PHQ-9: Total score 0 12/25/23 10:57 Depression Screening Interpretation: Negative Thrive Assessment: Date of Thrive Assessment Date Thrive assessed 12/25/23 12/25/23 10:57 Currently or been in a relationship where the following occur: No concerns reported Const General: no acute distress HENMT Head: Yes normal to inspection Ears: hearing grossly normal bilaterally General nose exam: Normal external nose present Mouth: Normal oral and palatal mucosa present Throat: Yes posterior oropharynx normal Eyes General: appearance normal, both eyes and all related structures Neck Neck: Yes no lymphadenopathy and Yes supple Resp Effort & Inspection: normal respiratory effort Auscultation: clear to auscultation bilaterally Cardio Rhythm: regular rhythm Heart sounds: S1 normal heart sound present and S2 normal heart sound present GI Inspection: Yes normal to inspection Palpation (GI): Soft to palpation Percussion: Yes normal to percussion Auscultation: normal bowel sounds Assessment and Plan Assessment & Plan (1) Hyperlipidemia: Comment: Diet controlled Code(s): E78.5 - Hyperlipidemia, unspecified Plan: Continue low-cholesterol diet patient had a blood work today but results are still pending (2) Hyperglycemia: Code(s): R73.9 - Hyperglycemia, unspecified Plan: Continue ADA diet check A1c (3) HTN (hypertension): Code(s): I10 - Essential (primary) hypertension Plan: Continue current medications increase physical activity (4) Annual physical exam: Code(s): Z00.00 - Encounter for general adult medical examination without abnormal findings Plan: Well-balanced diet regular exercise weight loss discussed with the patient. 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 Panel Fast 6 Months E78.5 - Hyperlipidemia, unspecified, I10 - Essential (primary) hypertension, R73.9 - Hyperglycemia, unspecified Lipid Panel 6 Months E78.5 - Hyperlipidemia, unspecified, I10 - Essential (primary) hypertension, R73.9 - Hyperglycemia, unspecified TSH reflex Free T4 Today E78.5 - Hyperlipidemia, unspecified, I10 - Essential (primary) hypertension, R73.9 - Hyperglycemia, unspecified Microalbumin, Random (w Creat) 6 Months E78.5 - Hyperlipidemia, unspecified, I10 - Essential (primary) hypertension, R73.9 - Hyperglycemia, unspecified Hemoglobin A1c 6 Months E78.5 - Hyperlipidemia, unspecified, I10 - Essential (primary) hypertension, R73.9 - Hyperglycemia, unspecified Complete Blood Count Auto Diff 6 Months E78.5 - Hyperlipidemia, unspecified, I10 - Essential (primary) hypertension, R73.9 - Hyperglycemia, unspecified Coding Level of Care Code Est Pt Prev Care 40-64y(04554) Diagnoses Hyperlipidemia E78.5 Hyperglycemia R73.9 HTN (hypertension) I10 Annual physical exam Z00.00 GERD (gastroesophageal reflux disease) K21.9 Additional Codes CHICA-7 Assessment Billing - CHICA-7 Assessment Tool: CHICA-7 Assessment 99486 ([id number])
== END 2023-12-25 11:26 | disposition home or self-care (01) ==
PROVIDERS: PCP Internal Medicine; Visit Provider Internal Medicine
DX: E78.5 Hyperlipidemia, unspecified (principal); R73.9 Hyperglycemia, unspecified; I10 Essential (primary) hypertension; Z00.00 Encounter for general adult medical examination without abnormal findings; K21.9 Gastro-esophageal reflux disease without esophagitis

== ENCOUNTER 2024-04-26 12:28 | Outpatient (REF) | payer OTHER, SELFPAY ==
--- OUTSIDE RECORDS SUMMARY | 2024-04-26 12:49 | XMS_ITS | Data Portability ---
Author Organization [facility] [employer], [id number] Address [address] [place] [id number] Assessment No assessment recorded. Plan of Treatment Reminders Order Date Submit Date Provider Last Modified By Organization Details Last Modified Time Details Appointments None record ed. Lab None record ed. Referral None record ed. Procedures None record ed. Surgeries None record ed. Imaging None record ed. Medication Orders None record ed. Patient TargetsNo targets recorded. Patient InstructionsNo instructions recorded. Reason for Referral None Reported. Procedures Surgical History Date Name Laterality Status Provider Name and Address Organization Details Recorded Time OC-UDS Send Out Template NON DOT completed DUSTY KIM [email or web address] 02/06/2024 09:15:53 Imaging Results None recorded. Procedure Notes None recorded. Medical Equipment None Reported. Medications Name Sig Start Date Stop Date Status Note LastModified by Organization Details LastModified Time buspirone 5 mg tablet TAKE 1 TABLET BY MOUTH DAILY NEEDED FOR ANXIETY active Not Available Not Available No t Available amlodipine 5 mg tablet TAKE 1 TABLET BY MOUTH EVERY DAY active Not Available Not Available No t Available omeprazole 40 mg capsule,delay ed release TAKE 1 CAPSULE BY MOUTH DAILY active Not Available Not Available No t Available hydrochloroth iazide 25 mg tablet TAKE 1 TABLET BY MOUTH EVERY DAY active Not Available Not Available No t Available estradiol 0.01% (0.1 mg/gram) vaginal cream APPLY 1 GRAM VAGINALLY DAILY AT BEDTIME FOR 2 WEEKS THEN 2-3 TIMES A WEEK active Not Available Not Available No t Available fluoxetine 20 mg capsule TAKE 1 CAPSULE BY MOUTH EVERY DAY active Not Available Not Available No t Available Vitals None Recorded Social History None recorded. Functional Status None recorded. Mental Status None recorded. Family History Nothing Reported. Medical History No medical history recorded. Gynecological HistoryNo gynecological history recorded. Obstetrics History GPAL:G 0 P 0 0 0 0 Past Encounters Encounter ID Performer Location Encounter Start Date Encounter Closed Date Diagnosis/Indication Diagnosis SNOMED-CT Code Diagnosis ICD10 Code Diagnosis Note [id number] [facility] [place] [address] 03/02/2018 11:58:12 03/02/2018 13:01:07 [id number] Sandra Herrera [address] [facility] [place] [address] 07/26/2018 15:06:51 07/26/2018 15:53:59 [id number] Sandra Herrera [address] [facility] [place] [address] 09/29/2017 10:46:04 09/29/2017 11:20:[id number] [address] 01/03/2021 08:54:54 01/03/2021 10:52:38 [id number] JUDY MAYES [id number] [address] 02/06/2024 09:06:54 02/06/2024 10:06:40 History and physical examination, occupation [id number] Z02.1 Health Concerns Section Related Observation LastModified by Organization Detai ls LastModified Time None Recorded Concern Status LastModified by Organization Details LastModified Time None Recorded Advance Directives Directive None Recorded Payers Encounter Date Sequence Insurance Name Policy Number Policy Mcclendon Covered Member ID Mcclendon Member ID Guarantor Name 09/29/2017 1 [facility] [id number] 1 Ramya Brandon [id number] Ramya Brandon 03/02/2018 1 [facility] [id number] 1 Ramya Brandon [id number] Ramya Brandon 07/26/2018 1 [facility] [id number] 1 Ramya Brandon [id number] Ramya Brandon 01/03/2021 1 [facility] [id number] 1 Ramya Brandon [id number] Ramya Brandon 02/06/2024 OC-ESCREEN [employer] [id number] Ramya Brandon OBGyn Episode No OBEpisode recorded.
[2024-04-26 15:58] LABS: MANUAL DIFF FLAG NO
[2024-04-26 16:09] LABS: Basophils Percent Auto 0.8 % (0-2); Eosinophils Absolute Auto 0.1 X10*3/uL (0.0-0.4); Eosinophils Percent Auto 2.1 % (0-4); Hematocrit 40.5 % (37.0-47.0); Hemoglobin 13.3 g/dl (12.0-16.0); Imm Gran Abs Auto 0.01 X10*3/uL (0.00-0.03); Imm Gran Pct Auto 0.2 % (0.0-0.4); Lymphocytes Absolute Auto 2.1 X10*3/uL (1.2-4.9); Lymphocytes Percent Auto 43.3 % (20-40); Mean Corpuscular HGB Conc 32.8 g/dl (31.0-35.0); Mean Corpuscular Hemoglobin 28.1 pg (27.0-33.0); Mean Corpuscular Volume 85.4 fL (80.0-98.0); Mean Platelet Volume 11.8 fL (9.4-12.3); Monocytes Absolute Auto 0.3 X10*3/uL (0.1-1.2); Monocytes Percent Auto 6.4 % (2-11); Neutrophils Absolute Auto 2.3 x10*3/uL (2.0-8.3); Neutrophils Percent Auto 47.2 % (45-73); Platelet Count 195 X10*3/uL (160-400); Red Blood Count 4.74 X10*6/uL (4.20-5.50); Red Cell Distribution Width 12.4 % (11.0-16.0); White Blood Count 4.8 X10*3/uL (4.8-10.8)
[2024-04-26 16:21] LABS: Estimated Average Glucose 126 mg/dL; Hemoglobin A1C 144.9899 umol/L; Total Hemoglobin (HGBA1C) 3475.5798 umol/L
[2024-04-26 17:10] LABS: Creatinine Urine 69.66 mg/dL; Microalbumin Urine < 5.0 mg/L
[2024-04-26 18:01] LABS: Alanine Aminotransferase 19 U/L (0-31); Albumin Level 4.1 g/dL (3.5-5.0); Anion Gap 12 (12-20); Aspartate Amino Transferase 23 U/L (5-31); Bilirubin Total 0.5 mg/dL (0.0-1.0); Blood Urea Nitrogen 15 mg/dL (9-16); Calcium 9.7 mg/dL (8.4-10.2); Carbon Dioxide 28 mmol/L (22-29); Chloride 105 mmol/L (96-108); Cholesterol 206 mg/dL (<200); Estimated Glomerular Filt Rate > 60; Glucose Fasting 107 mg/dL (60-99); HDL Cholesterol 59 mg/dL (>40); LDL Cholesterol Calculated 121 mg/dL (<100); Potassium 3.8 mmol/L (3.3-5.1); Sodium 141 mmol/L (135-145); Total Protein 7.1 g/dL (6.5-8.0); Triglycerides 131 mg/dL (<150)
[2024-04-26 18:15] LABS: Alkaline Phosphatase 70 U/L (39-117)
[2024-04-26 18:18] LABS: TSH reflex Free T4 1.16 uIU/mL (0.32-4.0)
== END 2024-04-26 12:29 | disposition home or self-care (01) ==
LOC: HO.HMGCLDS 12:28
PROVIDERS: PCP Internal Medicine; Visit Provider Internal Medicine
DX: R73.9 Hyperglycemia, unspecified (principal); E78.5 Hyperlipidemia, unspecified; I10 Essential (primary) hypertension
CPT/HCPCS: 36415; 80053; 80061; 82043; 82570; 83036; 84443; 85025

== ENCOUNTER 2024-04-29 09:00 | Outpatient (AMB) | payer OTHER, SELFPAY ==
[2024-04-29 09:11] VITALS: BP 126/72; PULSE 67; RESP 20; TEMP 36.6; O2SAT 95; BMI 35.9
--- NOTE | 2024-04-29 09:11 | MHC.PC.OV ---
Vital Signs 04/29/24 09:11 Height 5 ft 7 in Weight 229 lb BMI 35.9 BP 126/72 Blood Pressure Location Lt brachial Position Sitting Respiration 20 Pulse 67 Pulse Source Pulse Oximeter Temp 97.8 F Temp Source Oral Pulse Oximetry (%) 95 Oxygen Delivery Method Room Air Intake Visit Reasons: 6 months f/up Intake Note: Pt is here today for 6 months follow up visit. Allergies LISA Inhibitors Adverse Reaction (Verified 04/29/24 09:16) Anaphylaxis Seasonal Allergies Adverse Reaction (Verified 04/29/24 09:16) Itchy Eyes shell fish Adverse Reaction (Uncoded 04/29/24 09:16) Anaphylaxis Tobacco use date assessed: 04/29/24 Dental Screening Dental Screen Date: 04/29/24 Did you have a dental visit in the last 12 months?: Yes Did you have a dental problem in the last 6 months where you did not have access to dental care?: No Was dental information given to patient?: Patient has dentist HPI 6 months f/up HPI Details Patient presents for the follow-up on hypertension stable on current medications. Patient reports intermittent dry cough triggered by the irritation in back of her throat. She reports occasionally coughing while drinking water but denies odynophagia or dysphagia to solids. Patient reports intermittent postnasal drip but denies sneezing itchy eyes runny nose PFSH Medical History Multinodular thyroid Surgical History Hx of vaginal surgery Family History Brother Substance use disorder Mother No problems noted. 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 1. Little interest or pleasure in doing things: not at all 2. Feeling down, depressed, or hopeless: not at all 3. Trouble falling or staying asleep, or sleeping too much: not at all 4. Feeling tired or having little energy: not at all 5. Poor appetite or overeating: not at all 6. Feeling bad about yourself - or that you are a failure or have let yourself or your family down: not at all 7. Trouble concentrating on things, such as reading the newspaper or watching television: not at all 8. Moving or speaking so slowly that other people could have noticed. Or the opposite - being so fidgety or restless that you have been moving around a lot more than usual: not at all 9. Thoughts that you would be better off or of hurting yourself in some way: not at all Total score: 0 Depression Screening Interpretation: Negative Depression Screening Done: Yes 13874 - PHQ-9 Billing: Yes Source: Developed by Drs. Kavin Gracia, Ryanne Boyce, Mayco Palacios and colleagues, with an educational claudia from [employer]. Thrive Questionnaire Date Thrive assessed: 04/29/24 I am a: Patient What is your living situation today?: I have a steady place to live Within the past 12 months, did the food you bought not last and you didn't have the money to get more?: Never true Within the past 12 months, did you worry whether your food would run out before you got money to buy more?: Never true Do you have trouble paying for medicines?: No Do you have trouble getting transportation to medical appointments?: No Do you have trouble paying your heating and electricity bill?: No Do you have trouble taking care of your child, family member or friend?: No Do you have trouble with day-to-day activities such as bathing, preparing meals, shopping, managing finances, etc.?: No Are you currently unemployed and looking for a job?: No Are you interested in more education?: No Please select the resources that you would like help with: None Currently or been in a relationship where the following occur: No concerns reported THRIVE Score: 0 AUDIT C Alcohol Use Questionnaire (AUDIT-C) 1. How often do you have a drink containing alcohol?: 2-4 times a month 2. How many drinks containing alcohol do you have on a typical day when you are drinking?: 1 or 2 3. How often do you have six or more drinks on one occasion?: Never Total Score: 2 CHICA-7 AMB Questionnaire CHICA-7 Date CHICA - 7 assessed: 04/29/24 Feeling nervous, anxious, or on edge: 0 = Not at all Not being able to stop or control worryin = Not at all Worrying too much about different things: 0 = Not at all Trouble relaxin = Not at all Being so restless that it is hard to sit still: 0 = Not at all Becoming easily annoyed or irritable: 0 = Not at all Feeling afraid as if something awful might happen: 0 = Not at all Total CHICA-7 score (0-4 normal; 5-9 mild; 10-14 moderate; 15-21 severe): 0 Source: Developed by Drs. Kavin Gracia, Ryanne Boyce, Mayco Palacios and colleagues, with an educational claudia from [employer]. CHICA-7 Assessment Billing CHICA-7 Assessment Tool: CHICA-7 Assessment 72935 Review of Systems Const All systems reviewed & are unremarkable except as noted in HPI and below ENT Reports no additional complaints Card Reports no additional complaints Resp Reports no additional complaints GI Reports no additional complaints Reports no additional complaints Musc Reports no additional complaints Physical exam (Primary Care) Vital Signs: Last Vital Signs Temp 97.8 F 04/29/24 09:11 Pulse 67 04/29/24 09:11 Resp 20 04/29/24 09:11 BP 126/72 04/29/24 09:11 Pulse Ox 95 04/29/24 09:11 Oxygen Delivery Method Room Air 04/29/24 09:11 BMI result Body Mass Index 35.9 Tobacco/Smoking Status: Tobacco use Status Tobacco use date assessed 04/29/24 04/29/24 09:18 Patient Tobacco Use Status Never used Tobacco 04/29/24 09:16 e-Cigarette/Vaping Use Never Used 04/29/24 09:16 PHQ-9: PHQ-9 Score PHQ-9: Total score 0 04/29/24 09:20 Depression Screening Interpretation: Negative Thrive Assessment: Date of Thrive Assessment Date Thrive assessed 04/29/24 04/29/24 09:20 Currently or been in a relationship where the following occur: No concerns reported Const General: no acute distress HENMT Ears: hearing grossly normal bilaterally Throat: Yes tonsils normal, Yes uvula midline and Yes postnasal drainage Eyes General: appearance normal, both eyes and all related structures Neck Neck: Yes no lymphadenopathy and Yes supple Thyroid: Thyroid normal Resp Effort & Inspection: normal respiratory effort Auscultation: clear to auscultation bilaterally Cardio Rhythm: regular rhythm Heart sounds: S1 normal heart sound present and S2 normal heart sound present GI Inspection: Yes normal to inspection Palpation (GI): Soft to palpation Coding Level of Care Code Est Pt Level 4 (23095) Diagnoses Multinodular thyroid E04.2 Oropharyngeal dysphagia R13.12 HTN (hypertension) I10 Hyperglycemia R73.9 Additional Codes CHICA-7 Assessment Billing - CHICA-7 Assessment Tool: CHICA-7 Assessment 89412 ([id number]) PHQ-9 - 29616 - PHQ-9 Billing: Yes ([id number]) Assessment & Plan Assessment & Plan (1) Multinodular thyroid: Comment: Follow-up by endocrinology Code(s): E04.2 - Nontoxic multinodular goiter Category: Medical Plan: Repeat thyroid ultrasound (2) Oropharyngeal dysphagia: Code(s): R13.12 - Dysphagia, oropharyngeal phase Category: Medical Plan: Obtain swallow evaluation, patient was advised to use saline nasal spray for chronic postnasal drip (3) HTN (hypertension): Code(s): I10 - Essential (primary) hypertension Category: Medical Plan: Continue current medication (4) Hyperglycemia: Code(s): R73.9 - Hyperglycemia, unspecified Category: Medical Plan: A1c 6.0, ADA diet increase exercise weight loss discussed with the patient return for physical in 6 months Orders: Orders US thyroid Today E04.2 - Nontoxic multinodular goiter Hemoglobin A1c 6 Months E78.5 - Hyperlipidemia, unspecified, I10 - Essential (primary) hypertension, R73.9 - Hyperglycemia, unspecified TSH reflex Free T4 6 Months E78.5 - Hyperlipidemia, unspecified, I10 - Essential (primary) hypertension FL Modified Barium Swallow Today R13.12 - Dysphagia, oropharyngeal phase Comprehensive [place]. Panel Fast 6 Months E78.5 - Hyperlipidemia, unspecified, I10 - Essential (primary) hypertension, R73.9 - Hyperglycemia, unspecified Complete Blood Count Auto Diff 6 Months E78.5 - Hyperlipidemia, unspecified, I10 - Essential (primary) hypertension Lipid Panel 6 Months E78.5 - Hyperlipidemia, unspecified, I10 - Essential (primary) hypertension
--- OUTSIDE RECORDS SUMMARY | 2024-04-29 09:21 | XMS_ITS | Data Portability ---
Author Organization JUD[facility] [employer], [address] Address [address] [place] [id number] Assessment No assessment recorded. Plan of Treatment [...] Out Template NON DOT completed DUSTY KIM [employer] 02/06/2024 09:15:53 Imaging Results None recorded. Procedure [...] SNOMED-CT Code Diagnosis ICD10 Code Diagnosis Note [id number] [facility] [place] [address] 03/02/2018 11:58:12 03/02/2018 13:01:07 [id number] Sandra Herrera [address] [facility] [place] [address] 07/26/2018 15:06:51 07/26/2018 15:53:59 [id number] Sandra Herrera [address] [facility] [place] [address] 09/29/2017 10:46:04 09/29/2017 11:20:56 [id number] [address] [address] 01/03/2021 08:54:54 01/03/2021 10:52:38 [id number] JUDY MAYES [address] [address] 02/06/2024 09:06:54 02/06/2024 10:06:40 History and physical examination, occupation [id number] Z02.1 Health Concerns Section Related Observation LastModified by Organization Detai ls LastModified Time None Recorded Concern Status LastModified by Organization Details LastModified Time None Recorded Advance Directives Directive None Recorded Payers Encounter Date Sequence Insurance Name Policy Number Policy Mcclendon Covered Member ID Mcclendon Member ID Guarantor Name 09/29/2017 1 [facility] [id number] 1 Ramya Brandon [id number] Ramya Brandon 03/02/2018 1 [facility] [id number] 1 Ramya Brandon [id number] Ramya Brandon 07/26/2018 1 [facility] [id number] 1 Ramya Brandon [id number] Ramya Brandon 01/03/2021 1 [facility] [id number] 1 Ramya Brandon [id number] Ramya Brandon 02/06/2024 OC-ESCREEN [employer] [facility] [id number] Ramya Brandon OBGyn Episode No OBEpisode recorded.
== END 2024-04-29 09:48 | disposition home or self-care (01) ==
PROVIDERS: PCP Internal Medicine; Visit Provider Internal Medicine
DX: E04.2 Nontoxic multinodular goiter (principal); R13.12 Dysphagia, oropharyngeal phase; I10 Essential (primary) hypertension; R73.9 Hyperglycemia, unspecified

== ENCOUNTER → 2024-04-29 09:00 | Outpatient (BNVA) | payer OTHER, SELFPAY | PROVIDERS: PCP Internal Medicine; Visit Provider Internal Medicine | DX: E04.2 Nontoxic multinodular goiter (principal); R13.12 Dysphagia, oropharyngeal phase; I10 Essential (primary) hypertension; R73.9 Hyperglycemia, unspecified | CPT/HCPCS: 96127 ==

== ENCOUNTER 2024-05-08 13:57 | Outpatient (REF) | payer OTHER, SELFPAY ==
--- NOTE | ~2024-05-08 | US_ITS ---
EXAMINATION: US THYROID CLINICAL INFORMATION: Nontoxic multinodular goiter. COMPARISON: March 23, 2023. TECHNIQUE: Linear transducer grayscale and color Doppler examination with attention to the region of the thyroid. FINDINGS: SIZE: Measurements of the thyroid lobes and nodules are given in sagittal, anteroposterior and transverse dimensions respectively. Right Thyroid Lobe: 4.7 x 1.6 x 1.5 cm, volume 5.9 mL. Parenchyma: The gland echotexture is heterogeneous. Thyroid vascularity is normal. Left Thyroid Lobe: 4.7 x 1.4 x 1.5 cm, volume 5.2 mL. Parenchyma: The gland echotexture is heterogeneous. Thyroid vascularity is normal.. Isthmus: 0.5 cm in maximum AP dimension. Estimated total number of nodules greater than or equal to 1 cm: 2. Parent Aide nodules are described as follows: 1. Location: Lower pole, left thyroid lobe.. Size: 1.7 x 1.0 x 1.2 cm, volume 1.12 mL. Previous: 1.5 x 0.9 x 1.3 cm. Volume: 0.86 cc. Nodule characteristics: Composition: Spongiform (0). Echogenicity: Isoechoic (1). Shape: Not taller than wide (0). Margins: Smooth (0). Echogenic Foci: None (0). ACR TI-RADS total points: 0 ACR TI-RADS category: 1 2. Location: Upper pole, Right thyroid lobe. Size: 1.3 x 1.0 x 1.1 cm, volume 0.75 mL. Previous: 1.1 x 0.6 x 1.0, volume: 0.3 cc. Nodule characteristics: Composition: Cystic(0). Echogenicity: Anechoic (0). Shape: Not taller than wide (0). Margins: Smooth (0). Echogenic Foci: None (0). ACR TI-RADS total points: 0 ACR TI-RADS category: 1 NODES: No lymphadenopathy is seen in the tissue surrounding the thyroid gland. US/US thyroid IMPRESSION: ACR TI RADS 1. ACR TI-RADS RECOMMENDATION REFERENCE: Ultrasound-guided fine-needle aspiration, followup ultrasound, no further follow up. * TR1 (0 point) and TR2 (2 points): No FNA or follow up. * TR3 (3 points): FNA if more than or equal to 2.5 cm in maximum dimension, followup ultrasound in 1, 3 and 5 years if 1.5 to 2.4 cm in maximum dimension. * TR4 (4-6 points): FNA if more than or equal to 1.5 cm in maximum dimension, followup ultrasound in 1, 2, 3 and 5 years if 1 to 1.4 cm in maximum dimension. * TR5 (more than or equal to 7 points): FNA if more than or equal to 1 cm in maximum dimension, followup ultrasound every year for 5 years if 0.5 to 0.9 cm in maximum dimension. * TR3, TR4 or TR5 nodules that are below the size threshold for followup receive no follow up. Electronically signed by: Mikel Becker MD 05/20/2024 11:30 AM KIANA MANUEL
--- OUTSIDE RECORDS SUMMARY | 2024-05-08 15:16 | XMS_ITS | Data Portability ---
Author Organization JUDY [employer], [address] Address [address] [place] [phone] Assessment No assessment recorded. Plan of Treatment [...] Out Template NON DOT completed DUSTY KIM [employer] 02/06/2024 09:15:53 Imaging Results None recorded. Procedure [...] SNOMED-CT Code Diagnosis ICD10 Code Diagnosis Note [id number] [facility] [place] [address] 03/02/2018 11:58:12 03/02/2018 13:01:07 [id number] Sandra Herrera [address] [facility] [address] 07/26/2018 15:06:51 07/26/2018 15:53:59 [id number] Sandra Herrera [address] [facility] [place] [address] 09/29/2017 10:46:04 09/29/2017 11:20:56 [id number] [address] [address] 01/03/2021 08:54:54 01/03/2021 10:52:38 [id number] JUDY MAYES [address] [address] 02/06/2024 09:06:54 02/06/2024 10:06:40 History and physical examination, occupation [id number] Z02.1 Health Concerns Section Related Observation LastModified by Organization Detai ls LastModified Time None Recorded Concern Status LastModified by Organization Details LastModified Time None Recorded Advance Directives Directive None Recorded Payers Encounter Date Sequence Insurance Name Policy Number Policy Mcclendon Covered Member ID Mcclendon Member ID Guarantor Name 09/29/2017 1 [facility] [id number] 1 Ramya Brandon [id number] Ramya Brandon 03/02/2018 1 [facility] [id number] 1 Ramya Brandon [id number] Ramya Brandon 07/26/2018 1 [facility] [id number] 1 Ramya Brandon [id number] Ramya Brandon 01/03/2021 1 [facility] [id number] 1 Ramya Brandon [id number] Ramya Brandon 02/06/2024 OC-ESCREEN [employer] [place] [id number] Ramya Brandon OBGyn Episode No OBEpisode recorded.
== END 2024-05-08 13:58 | disposition home or self-care (01) ==
LOC: HO.HMGCX 13:57
PROVIDERS: PCP Internal Medicine; Visit Provider Internal Medicine
DX: E04.2 Nontoxic multinodular goiter (principal)
CPT/HCPCS: 76536

== ENCOUNTER → 2024-05-08 14:00 | Outpatient (BNV) | payer OTHER, SELFPAY | PROVIDERS: PCP Internal Medicine; Visit Provider Radiology Diagnostic Radiology | DX: E04.2 Nontoxic multinodular goiter (principal) | CPT/HCPCS: 76536 ==

== ENCOUNTER 2024-08-05 14:16 | Outpatient (REF) | payer OTHER, SELFPAY ==
--- NOTE | ~2024-08-05 | FL_ITS ---
EXAMINATION: XR BARIUM SWALLOW CLINICAL INFORMATION: Dysphagia. Globus. COMPARISON: None available. TECHNIQUE: Modified barium swallow was performed in lateral fluoroscopy and in presence of speech therapist. FINDINGS: On oral administration of thick barium, solid food and pureed there is normal propagation of bolus from the oral cavity through the pharynx and esophagus without any evidence of obstruction, narrowing or stricture. No laryngeal penetration or aspiration seen. Incidental finding of large ventral bridging osteophyte at C3 4-5 and mild ventral spondylosis at C3-4 and C5-6 disc level is present. The prevertebral soft tissues are normal.. FLUOROSCOPY TIME: 47 seconds DOSE AREA PRODUCT: 58.5 uGy-m2 (microgray-meter squared) FL/FL Modified Barium Swallow IMPRESSION: Normal modified barium swallow. Incidental findings of ventral spondylosis as described above. Correlate with speech therapy results. Electronically signed by: Quinten Gonzales MD 08/06/2024 07:25 AM EDT
--- OUTSIDE RECORDS SUMMARY | 2024-08-05 14:29 | XMS_ITS | Data Portability ---
Author Organization JUDY [employer], [address] Address [address] [place] [phone] Assessment No assessment recorded. Plan of Treatment [...] Out Template NON DOT completed DUSTY KIM [employer] 02/06/2024 09:15:53 Imaging Results None recorded. Procedure [...] SNOMED-CT Code Diagnosis ICD10 Code Diagnosis Note [id number] [address] [place] [address] 03/02/2018 11:58:12 03/02/2018 13:01:07 [id number] [address] [place] [address] 07/26/2018 15:06:51 07/26/2018 15:53:59 [id number] [address] [place] [address] 09/29/2017 10:46:04 09/29/2017 11:20:56 [id number] [facility] [address] [address] 01/03/2021 08:54:54 01/03/2021 10:52:38 [id number] JUDY MAYES [address] [address] 02/06/2024 09:06:54 02/06/2024 10:06:40 History and physical examination, occupation [id number] Z02.1 Health Concerns Section Related Observation LastModified by Organization Detai ls LastModified Time None Recorded Concern Status LastModified by Organization Details LastModified Time None Recorded Advance Directives Directive None Recorded Payers Insurance Date Sequence Insurance Name Policy Number Policy Mcclendon Covered Member ID Mcclendon Member ID Guarantor Name 02/06/2024 OC-ESCREEN [employer] [place] [id number] Ramya Taylor 02/06/2024 1 [facility] [id number] 01 Ramya Taylor [id number] Ramya Taylor OBGyn Episode No OBEpisode recorded.
--- NOTE | 2024-08-06 11:29 | MHC.SL.IMP ---
Date of Plan of Treatment: 08/05/24 Onset of Symptoms/Illness: 08/05/22 Date Treatment Started: 08/05/24 Admitting Diagnosis: Hx multinodular thyroid Primary Speech & Language Diagnosis: R13.10 Dysphagia Reason for Today's Visit: 68490 Modified Barium Swallow Study Pre-evaluation Dietary Consistencies: Regular Pre-evaluation Liquid Consistency: Thin Pre-evaluation Medication Administration: Whole with Liquid Medical History: Modified Barium Swallow Study Fluoroscopic Evaluation of Swallowing Function CPT Code 11573 Evaluation Year: 2024 Reason for Study: Difficulty swallowing Referring Physician: Marylu Trejo MD Evaluating Clinician: Marisela Mathews MA, CCC-GIS PROFESSOR Study Number: 1 Patient Name: Ramya Zeng Status: Outpatient Age: 59 Sex: Female Medical History Medical History Multinodular thyroid Surgical History Hx of vaginal surgery Current (pre-evaluation) Intake/Diet: Route: PO Diet Grade: Regular Liquid Consistencies: Thin Pre-Study Functional Oral Intake Scale (FOIS): 7- Total oral intake with no restrictions Pain: None reported at time of study SUBJECTIVE: Patient is a 59 year old female referred for a modified barium swallow study by her primary care physician, Marylu Trejo MD, from the [facility] in [place]. Patient complains of dry cough triggered by irritation in the back of her throat. She also reported occasionally coughing while drinking water, hx of heart burn, and globus sensation just above the sternum after eating. Patient says she had seen a G.I. specialist once and was prescribed omeprazole. Pertinent hx also includes multinodular thyroid. Oral Motor Exam Facial Symmetry: Symmetrical Mouth Occlusion: Normal Oral-Facial Teeth Characteristics: Intact/Normal Oral-Facial Lip Pucker Description: Normal Oral-Facial Smile (Lips) Description: Normal Oral-Facial Puff Cheeks Description: Normal Tongue Size: Normal Tongue Excursion Description: Normal Tongue Range of Movement Description: Normal Tongue Speed of Movement Description: Normal Tongue Strength of Movement (against opposing pressure): Normal Tongue Movement Characteristics: Normal/Absent Is patient able to manage secretions?: Yes Food and Liquid Trials: Oral Impairment: Lip Closure: Did not test Oral Impairment: Tongue Control During Bolus Hold: 0=Cohesive bolus between tongue to palatal seal Oral Impairment: Bolus Preparation/Mastication: 0=Timely and efficient chewing and mashing Oral Impairment: Bolus Transport/Lingual Motion: 0=Brisk tongue motion Oral Impairment: Oral Residue: 1=Trace residue lining oral structures Oral Impairment:Initiation of Pharyngeal Swallow: 0=Bolus head at posterior angle of ramus (first hyoid excursion) Pharyngeal Impairment: Soft Palate Elevation: 0=No bolus between soft palate (SP)/pharyngeal wall (PW) Pharyngeal Impairment: Laryngeal Elevation: 1=Partial thyroid cartilage/arytenoids to epiglottic petiole movement Pharyngeal Impairment: Anterior Hyoid Excursion: 1=Partial anterior movement Pharyngeal Impairment: Epiglottic Movement: 0=Complete inversion Pharyngeal Impairment: Laryngeal Vestibular Closure:: 0=Complete: no air/contrast in laryngeal vestibule Pharyngeal Impairment: Pharyngeal Stripping Wave: 0=Present: complete Pharyngeal Impairment: Pharyngeal Contraction: Did not test Pharyngeal Impairment: Pharyngoesophageal Segment Openin=Complete distension and complete duration: no obstruction of flow Pharyngeal Impairment: Tongue Base (TB) Retraction: 1=Trace column of contrast/air between TB and posterior PW Pharyngeal Impairment: Pharyngeal Residue: 1=Trace residue within or on pharyngeal structures Pharyngeal Impairment: Esophageal Clearance Upright Position: Did not test Impressions and Recommendations OBJECTIVE: Time-out: performed at 15:00 Evaluation Start: 14:30; Stop: 14:35 Viewing Planes: LATERAL ONLY Contrast: MBSImP? Standardized Protocol using commercially prepared, standardized Barium viscosities, including: Varibar? THIN LIQUID (40% w/v, <15 cps) , Varibar? PUDDING (40% w/v, <3213-4241 cps) , 1/2 Shortbread Cookie (1 x1 x.25 ) MBSImP ID: [id number] MBSImP Results: Lip closure for intraoral bolus containment could not be assessed due to logistical reasons not related to physiologic impairment. Tongue control during bolus hold maintained a cohesive bolus held between tongue to palate seal. Bolus preparation and mastication resulted in timely and efficient chewing and mashing. Bolus transport/lingual motion was with brisk tongue motion. Oral residue was a trace, lining oral structures. Initiation of the pharyngeal swallow occurred as the bolus head reached the posterior angle of the mandibular ramus. Soft palate elevation resulted in no bolus between the soft palate and the pharyngeal wall. Laryngeal elevation was decreased, with partial superior movement of the thyroid cartilage/partial approximation of the arytenoids to the epiglottic petiole. Anterior hyoid excursion demonstrated partial anterior movement. Epiglottic movement resulted in complete inversion. Laryngeal vestibular closure was complete, as indicated by no air or contrast within the laryngeal vestibule at the height of the swallow. Pharyngeal stripping wave was present and complete. Pharyngeal contraction could not be determined due to logistical reasons not related to physiologic impairment. Pharyngoesophageal segment opening was completely distended for complete duration with no obstruction of bolus flow. Tongue base retraction allowed a trace column of contrast or air between the retracted tongue base and the posterior pharyngeal wall. Pharyngeal residue was a trace within or on pharyngeal structures. Esophageal clearance in the upright position could not be assessed due to logistical reasons not related to physiologic impairment. Oral Impairment Score: 0 (absence of score, component 1) Pharyngeal Impairment Score: 2 (absence of score, component 13) Esophageal Impairment Score: --- (absence of score, component 17) Laryngeal Penetration and Aspiration: Neither penetration nor aspiration was observed in today's study with Cookie, Pudding-thick, Thin. ASSESSMENT: Exam was performed by the radiologist and the speech pathologist. Patient was standing for lateral view only and trialed the following consistencies: thin liquid (individual cup sips & rapid cup sips), puree, and regular solids. Patient demonstrated timely and well-coordinated oral phase. Good tongue control with no premature posterior spillage. Mastication was timely and efficient, resulted in good overall recollection. AP transport was brisk and timely. Timely pharyngeal swallow trigger. No evidence of nasopharyngeal reflux. Partial laryngeal elevation, but with complete epiglottic inversion and complete laryngeal vestibular closure. No evidence of aspiration or penetration during this exam. There was trace residue seen diffusely on the tongue base and pharyngeal wall and in the valleculae and pyriforms, which cleared with subsequent swallows. Radiologist noted, ?Incidental finding of large ventral bridging osteophyte at C3 4-5 and mild ventral spondylosis at C3-4 and C5-6 disc level is present. The prevertebral soft tissues are normal.? Liquid Intake Recommendation: Thin Liquid Intake Strategies: Unrestricted Dietary Recommendations: Regular Medication Administration: Whole with Liquid Please contact the pharmacy regarding appropriate crushable or liquid drug formulations that are available whenever modified delivery is recommended. Compensatory Strategies Recommended: Supervision during eating and or drinking: Recommended Treatments: Recommendation for Speech Therapy: NA:Typical Evaluation Text Comment: Intake Recommendations: Route: PO Diet Grade: Regular Liquid Consistencies: Thin Post-Study Functional Oral Intake Scale (FOIS): 7- Total oral intake with no restrictions No evidence of aspiration or penetration. Good oral and pharyngeal clearance. Suggested Referrals: The patient might benefit from a referral to: Gastroenterology Indication for Referral: Hx heart burn, complaints of globus sensation Therapy Recommendations: Therapy will be discontinued, as patient?s swallow is deemed to be WFL in the oral and pharyngeal phase. Recommend patient continue with regular texture diet and thin liquids with reflux precautions: remain upright during meal and for at least 30-45 minutes afterwards, avoid eating before bed, avoid trigger foods and other irritants. Patient complains of globus sensation, with MBSS showing overall good oral and pharyngeal clearance, therefore not likely the culprit to patient?s symptoms. Recommend GI consult for further management/workup. Clinician - Supplemental, Miscellaneous Communication: It is important to note MBSS objective studies are snapshots in time and Patient function might vary with factors such as time of day or concomitant medical conditions. For this reason, the final treatment plan for this patient should rest with their medical care team. Additional recommendations should be considered with the totality of the Patient in mind. Thank for the opportunity to participate in the care of this patient. If you have any questions about the content of this report, please contact the [facility]. Education: Education regarding findings from today's study and plans for therapy were provided to Patient only through Verbal Instruction. Understanding was expressed by the Patient only. Wholesale Loan Processor Clinician/Clinical Fellow: No Supervisory Statement: N/A Speech Language Pathologist: Marisela Mathews M.A., CCC-GIS PROFESSOR
== END 2024-08-05 14:17 | disposition home or self-care (01) ==
LOC: HO.XRAY 14:16
PROVIDERS: PCP Internal Medicine; Visit Provider Internal Medicine
DX: R13.12 Dysphagia, oropharyngeal phase (principal)
CPT/HCPCS: 74230; 92611

== ENCOUNTER → 2024-08-05 14:17 | Outpatient (BNV) | payer OTHER, SELFPAY | PROVIDERS: PCP Internal Medicine; Visit Provider Radiology Diagnostic Radiology | DX: R13.10 Dysphagia, unspecified (principal); R09.A2 Foreign body sensation, throat | CPT/HCPCS: 74230 ==

== ENCOUNTER 2024-10-24 11:40 | Outpatient (REF) | payer OTHER, SELFPAY ==
--- OUTSIDE RECORDS SUMMARY | 2024-10-24 12:22 | XMS_ITS | Clinical Summary ---
Author Organization [facility] Address [address] [place] [address] Phone Care Team Providers Care Applied Marine Physics Professor Name Role Phone Marylu Trejo MD Primary Care Provider [phone] Allergies Active Allergy Reactions Criticality Noted Date Comments Jorge Inhibitors Swelling 10/06/2022 Cat Dander 05/21/2023 Other Reaction(s): sneezing ,eyes water Medications amLODIPine (NORVASC) 5 MG tablet Take 1 tablet by mouth every morning. 09/07/2022 Active busPIRone (BUSPAR) 5 MG tablet Take 1 tablet by mouth once as needed. 09/05/2022 Active hydroCHLOROthia zide (HYDRODIURIL) 25 MG tablet Take 1 tablet by mouth every morning. 09/03/2022 Active omeprazole (PRILOSEC) 40 MG capsule 10/05/2022 Active cetirizine (ZYRTEC) 10 MG tablet Take 10 mg by mouth daily. Active vitamin A,C,E-zinc-filomena er (OCUVITE PRESERVE) 2,148 mcg-113 mg-45 mg-17.4mg Tab Take 1 tablet by mouth daily. Active FLUoxetine (PROZAC) 20 MG capsule Take 1 capsule by mouth every morning. 05/17/2023 Active Active Problems Problem Noted Date Diagnosed Date Benign essential HTN 10/06/2022 10/06/2022 Urinary urgency 10/06/2022 10/06/2022 Environmental allergies 10/06/2022 10/07/19 23 Tubular adenoma of colon 05/12/2022 023 Overview (10/06/2022): repeat screening colonoscopy in 2027 Immunizations No known immunizations Social History Tobacco Use Types Packs/Day Years Used Date Smoking Tobacco: Never Smokeless Tobacco: Never Tobacco Cessation:Counseling Given: Not Answered Education Answer Date Recorded Are you interested in more education? Not on kemal e 10/06/2022 Are you concerned about learning? Not on file 10/06/2022 No 10/06/2022 No 10/06/2022 Digital Access Answer Date Recorded No 10/06/2022 No 10/06/2022 Reliable internet access at home? Not on file 10/06/2022 Device with a working camera? Not on file Comments Unknown Sex and Gender Information Value Date Recorded Sex Assigned at Not on file Legal Sex Female 8:46 AM EDT Gender Identity Not on file Sexual Orientation Not on file Last Filed Vital Signs Vital Sign Reading Time Taken Comments Blood Pressure 139/87 05/21/2023 9:18 AM EST Pulse 90 05/21/2023 9:18 AM EST Temperature 36.9 C (98.5 F) 05/21/2023 9:18 AM EST Respiratory Rate 16 05/21/2023 9:18 AM EST Oxygen Saturation 98% 05/21/2023 9:18 AM EST Inhaled Oxygen Concentration - - Weight 95.3 kg (210 lb) 10/06/2022 9:18 AM EDT Height 170.2 cm (5' 7 ) 10/06/2022 9:18 AM EDT Body Mass Index 32.89 10/06/2022 9:18 AM EDT Plan of Treatment Health Maintenance Due Date Last Done Comments Adult Td,Tdap Booster 1965 LIPID PANEL 1965 POTASSIUM LEVEL 1965 DEPRESSION SCREENING 1977 HEPATITIS C SCREENING 06/25/1983 HIV ONE-TIME SCREENING (18-6 5 YEARS) 06/25/1983 PAP SMEAR 1986 SCREENING FOR DIABETES 2000 MAMMOGRAM 2005 COLOGUARD 2010 COLONOSCOPY 2010 COLORECTAL CANCER SCREENING 2010 FIT TEST 2010 FOBT 2010 SIGMOIDOSCOPY 2010 VIRTUAL COLONOSCOPY 2010 PNEUMOCOCCAL VACCINES (50+ years) (1 of 1 - PCV) 06/25/2015 ZOSTER VACCINES (2 of 2) 03/14/2022 01/17/2022 BLOOD PRESSURE 11/19/2023 05/21/2023 COVID-19 VACCINE (4 - 2023-2 5 season) 2023 03/08/2021, 05/24/2020, 04/30/2020 SMOKING STATUS SCREENING (On ce After 26 Yrs) Completed 05/21/2023 HEPATITIS A VACCINES Aged Out No long er eligible based on patient's age to complete this topic HIB VACCINES Aged Out No longer eligi ble based on patient's age to complete this topic MENINGOCOCCAL VACCINES (ACWY) Aged Out No longer eligible based on patient's age to complete this topic MENINGOCOCCAL VACCINES (B) Aged Out N o longer eligible based on patient's age to complete this topic Medical Devices Not on file Insurance [address] [place], [place] [address] [place], [place] [address] [place], [place] [address] Care Teams Applied Marine Physics Professor Relationship Specialty Start Date End Date Marylu Trejo MD [facility] [place] [address] PCP - General Internal Medicine 10/06/22 Additional Source Comments The information contained in this document represents components of the legal health record. It is not the complete legal health record.[facility]
[2024-10-24 13:12] LABS: MANUAL DIFF FLAG NO
[2024-10-24 13:22] LABS: Hematocrit 41.8 % (37.0-47.0); Hemoglobin 14.2 g/dl (12.0-16.0); Imm Gran Abs Auto 0.01 X10*3/uL (0.00-0.03); Imm Gran Pct Auto 0.2 % (0.0-0.4); Lymphocytes Absolute Auto 2.2 X10*3/uL (1.2-4.9); Mean Corpuscular HGB Conc 34.0 g/dl (31.0-35.0); Mean Corpuscular Hemoglobin 28.8 pg (27.0-33.0); Mean Corpuscular Volume 84.8 fL (80.0-98.0); NRBC Abs Auto 0.000 X10*3/uL (0.0-0.012); NRBC Pct Auto 0.0 /100WBC (0.0-0.2); Platelet Count 200 X10*3/uL (160-400); Red Blood Count 4.93 X10*6/uL (4.20-5.50); White Blood Count 5.7 X10*3/uL (4.8-10.8)
[2024-10-24 13:34] LABS: Hemoglobin A1C 162.3486 umol/L; Total Hemoglobin (HGBA1C) 3768.6333 umol/L
[2024-10-24 13:59] LABS: Alanine Aminotransferase 20 U/L (0-31); Albumin Level 4.4 g/dL (3.5-5.0); Alkaline Phosphatase 75 U/L (39-117); Anion Gap 13 (12-20); Aspartate Amino Transferase 22 U/L (5-31); Blood Urea Nitrogen 13 mg/dL (9-16); Calcium 9.1 mg/dL (8.4-10.2); Carbon Dioxide 29 mmol/L (22-29); Chloride 102 mmol/L (96-108); Cholesterol 239 mg/dL (<200); Estimated Glomerular Filt Rate > 60; HDL Cholesterol 57 mg/dL (>40); Potassium 4.1 mmol/L (3.3-5.1); Sodium 140 mmol/L (135-145); Total Protein 7.0 g/dL (6.5-8.0); Triglycerides 181 mg/dL (<150)
== END 2024-10-24 11:41 | disposition home or self-care (01) ==
LOC: HO.HMGCLDS 11:40
PROVIDERS: PCP Internal Medicine; Visit Provider Internal Medicine
DX: I10 Essential (primary) hypertension (principal); E78.5 Hyperlipidemia, unspecified; R73.9 Hyperglycemia, unspecified
CPT/HCPCS: 36415; 80053; 80061; 83036; 84443; 85025

== ENCOUNTER 2024-10-29 11:22 | Outpatient (AMB) | payer OTHER, SELFPAY ==
[2024-10-29 11:26] VITALS: BP 114/68; PULSE 73; RESP 18; TEMP 36.8; O2SAT 96; BMI 35.7
--- NOTE | 2024-10-29 11:26 | A.OFFPC_ITS ---
Vital Signs 10/29/24 11:26 Height 5 ft 7 in Weight 228 lb BMI 35.7 BP 114/68 Blood Pressure Location Rt brachial Position Sitting Respiration 18 Pulse 73 Pulse Source Pulse Oximeter Temp 98.2 F Temp Source Oral Pulse Oximetry (%) 96 Oxygen Delivery Method Room Air Intake Visit Reasons: 6 months follow up Intake Note: Pt is here today for 6 months follow up visit. Allergies LISA Inhibitors Adverse Reaction (Verified 10/29/24 11:29) Anaphylaxis Seasonal Allergies Adverse Reaction (Verified 10/29/24 11:29) Itchy Eyes shell fish Adverse Reaction (Uncoded 10/29/24 11:29) Anaphylaxis Medication List - Last Reconciled 10/29/24 by Marylu Trejo MD amlodipine 5 mg PO DAILY ascorbate calcium (vitamin C) 500 mg PO DAILY cetirizine (Zyrtec) 10 mg PO DAILY PRN cholecalciferol (vitamin D3) 25 mcg PO DAILY fluoxetine 20 mg PO DAILY hydrochlorothiazide 25 mg PO DAILY multivitamin 1 tab PO DAILY omeprazole 40 mg PO DAILY potassium citrate mg PO vitamins A,C,K-expt-ubvgov 4,296 mcg-226 mg-90 mg (PreserVision AREDS) 1 cap PO ONCE Tobacco use date assessed: 10/29/24 Dental Screening Dental Screen Date: 04/29/24 HPI 6 months follow up HPI Details Patient presents for the follow-up on hypertension and chronic anxiety. She had an episode of left thigh sensation of wetness on and off for few weeks. Patient went to the chiropractor and after manipulation of her lower back the sensation resolved. She denies any weakness in extremities, change in the bladder or bowel function. [facility] Medical History (Updated 10/29/24 @ 12:12 by Marylu Trejo MD) Anxiety Hyperglycemia Hyperlipidemia HTN (hypertension) Multinodular thyroid Surgical History (Updated 10/29/24 @ 12:10 by Marylu Trejo MD) Hx of colonoscopy Hx of vaginal surgery Family History Brother Substance use disorder Mother No problems noted. 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 Housing: House Alcohol intake: current Alcohol intake frequency: holidays/special occasions only Patient Tobacco Use Status: Never used Tobacco e-Cigarette/Vaping Use: Never Used service: No Current occupational status: employed Cognitive needs: No Hearing needs: No Vision needs: Yes Questionnaire Thrive Questionnaire Date Thrive assessed: 10/29/24 I am a: Patient What is your living situation today?: I have a steady place to live Within the past 12 months, did the food you bought not last and you didn't have the money to get more?: Never true Within the past 12 months, did you worry whether your food would run out before you got money to buy more?: Never true Do you have trouble paying for medicines?: No Do you have trouble getting transportation to medical appointments?: No Do you have trouble paying your heating and electricity bill?: No Do you have trouble taking care of your child, family member or friend?: No Do you have trouble with day-to-day activities such as bathing, preparing meals, shopping, managing finances, etc.?: No Are you currently unemployed and looking for a job?: No Are you interested in more education?: No Please select the resources that you would like help with: None Currently or been in a relationship where the following occur: No concerns reported THRIVE Score: 0 CHICA-7 AMB Questionnaire CHICA-7 Date CHICA - 7 assessed: 04/29/24 Source: Developed by Drs. Kavin Gracia, Ryanne Boyce, Mayco Palacios and colleagues, with an educational claudia from [employer] Review of Systems Const All systems reviewed & are unremarkable except as noted in HPI and below Eyes Reports no additional complaints ENT Reports no additional complaints Card Reports no additional complaints Resp Reports no additional complaints GI Reports no additional complaints Reports no additional complaints Physical exam (Primary Care) Vital Signs: Last Vital Signs Temp 98.2 F 10/29/24 11:26 Pulse 73 10/29/24 11:26 Resp 18 10/29/24 11:26 BP 114/68 10/29/24 11:26 Pulse Ox 96 10/29/24 11:26 Oxygen Delivery Method Room Air 10/29/24 11:26 BMI result Body Mass Index 35.7 Tobacco/Smoking Status: Tobacco use Status Tobacco use date assessed 10/29/24 10/29/24 11:35 Patient Tobacco Use Status Never used Tobacco 10/29/24 11:35 e-Cigarette/Vaping Use Never Used 10/29/24 11:27 Thrive Assessment: Date of Thrive Assessment Date Thrive assessed 10/29/24 10/29/24 11:35 Currently or been in a relationship where the following occur: No concerns reported Const General: no acute distress HENMT Head: Yes normal to inspection Mouth: Normal oral and palatal mucosa present Resp Effort & Inspection: normal respiratory effort Auscultation: clear to auscultation bilaterally Cardio Rhythm: regular rhythm Heart sounds: S1 normal heart sound present and S2 normal heart sound present GI Inspection: Yes normal to inspection Palpation (GI): Soft to palpation Coding Level of Care Code Est Pt Level 4 (85929) Diagnoses HTN (hypertension) I10 Hyperlipidemia E78.5 Hyperglycemia R73.9 Anxiety F41.9 Assessment & Plan Assessment & Plan (1) HTN (hypertension): Code(s): I10 - Essential (primary) hypertension Category: Medical Plan: Continue current medications (2) Hyperlipidemia: Comment: Diet controlled Code(s): E78.5 - Hyperlipidemia, unspecified Category: Medical Plan: Low-cholesterol diet increase exercise weight loss discussed with the patient. Follow-up in 6 months with a fasting labs before (3) Hyperglycemia: Code(s): R73.9 - Hyperglycemia, unspecified Category: Medical Plan: A1c is 6.1, ADA diet increase exercise weight loss discussed with the patient (4) Anxiety: Code(s): F41.9 - Anxiety disorder, unspecified Category: Medical Plan: Continue fluoxetine Orders: Orders Comprehensive [place]. Panel Fast 6 Months E78.5 - Hyperlipidemia, unspecified, I10 - Essential (primary) hypertension, R73.9 - Hyperglycemia, unspecified TSH reflex Free T4 6 Months E78.5 - Hyperlipidemia, unspecified, I10 - Essential (primary) hypertension, R73.9 - Hyperglycemia, unspecified Hemoglobin A1c 6 Months E78.5 - Hyperlipidemia, unspecified, I10 - Essential (primary) hypertension, R73.9 - Hyperglycemia, unspecified Lipid Panel 6 Months E78.5 - Hyperlipidemia, unspecified, I10 - Essential (primary) hypertension, R73.9 - Hyperglycemia, unspecified Complete Blood Count Auto Diff 6 Months E78.5 - Hyperlipidemia, unspecified, I10 - Essential (primary) hypertension, R73.9 - Hyperglycemia, unspecified Microalbumin, Random (w Creat) 6 Months E78.5 - Hyperlipidemia, unspecified, I10 - Essential (primary) hypertension, R73.9 - Hyperglycemia, unspecified Medications: Refilled fluoxetine 20 mg PO DAILY 90 caps 3RF amlodipine 5 mg PO DAILY 90 tabs 3RF hydrochlorothiazide 25 mg PO DAILY 90 tabs 3RF
--- OUTSIDE RECORDS SUMMARY | 2024-10-29 12:10 | XMS_ITS | Clinical Summary ---
Author Organization [facility] Address [address] [place] [address] Phone Care Team Providers Care Livestock Inspector Name Role Phone Marylu Trejo MD Primary Care Provider [phone] Allergies Active Allergy Reactions Criticality Noted Date [...] Not on file Insurance [address] [place], [place] [address] [place], [place] [address] [place], [place] [address]O Care Teams Livestock Inspector Relationship Specialty Start Date End Date Marylu Trejo MD [facility] [place] [address] PCP - General Internal Medicine 10/06/22 Additional Source Comments The information contained in this document represents components of the legal health record. It is not the complete legal health record.[facility]
== END 2024-10-29 12:05 | disposition home or self-care (01) ==
LOC: HO.HMCC 11:23
PROVIDERS: PCP Internal Medicine; Visit Provider Internal Medicine
DX: I10 Essential (primary) hypertension (principal); E78.5 Hyperlipidemia, unspecified; R73.9 Hyperglycemia, unspecified; F41.9 Anxiety disorder, unspecified